=== PATIENT | male | born 1965 ===

== ENCOUNTER 2021-04-23 00:34 | Observation (INO) | payer BC ==
[2021-04-23] MEDS ORDERED: Lactated Ringers 1,000 ML IV ONE (01:04)
--- NOTE | 2021-04-23 01:12 | EDM.PDOC ---
ED HPI GENERAL MEDICAL PROBLEM - General Chief Complaint: Gastrointestinal Problem Stated Complaint: throwing up blood dehydrated Time Seen by Provider: 04/23/21 01:06 - History of Present Illness INITIAL COMMENTS - FREE TEXT/NARRATIVE: 55-year-old male presents the emergency room with nausea vomiting dehydration. Patient has been vomiting black coffee-ground like emesis started yesterday today this turned into bright red blood he is passing black stool tarry soft per rectum. Apparently the patient drinks heavily on the weekends. Then the patient uses ibuprofen at least 2 times a day. Patient denies any other medical problems no heart problems breathing difficulties or shortness of breath. He is not prescribed any routine medications. - Related Data Allergies Allergy/AdvReac Type Severity Reaction Status Date / Time No Known Allergies Allergy Verified 04/23/21 00:55 Home Meds: Home Meds . [No Known Home Meds] 04/23/21 [History] Past Medical History - Past Health History Medical/Surgical History: Denies Medical/Surgical History Social & Family History - Tobacco Use Tobacco Use Status *Q: Current Every Day Tobacco User Years of Tobacco use: 40 Packs/Tins Daily: 0.5 - Caffeine Use Caffeine Use: Reports: Coffee, Soda - Alcohol Use Days Per Week of Alcohol Use: 3 Number of Drinks Per Day: 6 Total Drinks Per Week: 18 - Recreational Drug Use Recreational Drug Use: No ED ROS GENERAL - Review of Systems Review Of Systems: See Below Constitutional: Reports: No Symptoms HEENT: Reports: No Symptoms Respiratory: Reports: No Symptoms Cardiovascular: Reports: No Symptoms Endocrine: Reports: No Symptoms GI/Abdominal: Reports: Black Stool, Hematemesis, Nausea, Vomiting. Denies: Abdominal Pain, Anorexia, Constipation : Reports: No Symptoms Musculoskeletal: Reports: No Symptoms Skin: Reports: No Symptoms Neurological: Reports: No Symptoms Psychiatric: Reports: No Symptoms Hematologic/Lymphatic: Reports: No Symptoms Immunologic: Reports: No Symptoms ED EXAM, GENERAL - Physical Exam Exam: See Below Exam Limited By: No Limitations General Appearance: Alert, No Apparent Distress, Other (Pale yellow color) Eye Exam: Bilateral Eye: Normal Inspection Head: Atraumatic, Normocephalic Neck: Normal Inspection, Supple, Non-Tender, Full Range of Motion Respiratory/Chest: No Respiratory Distress, Lungs Clear, Normal Breath Sounds Cardiovascular: Normal Peripheral Pulses, Regular Rate, Rhythm, No Edema, Tachycardia (Tachycardia rate slightly over 100) GI/Abdominal: Normal Bowel Sounds, Soft, Non-Tender Rectal (Males) Exam: Heme + Stool (Black tarry stool) Back Exam: Normal Inspection. No: CVA Tenderness (L), CVA Tenderness (R) Extremities: Normal Inspection, Normal Range of Motion, Non-Tender Course - Vital Signs Last Recorded V/S: Last Vital Signs Temp 36.5 C 04/23/21 05:28 Pulse 100 04/23/21 06:25 Resp 17 04/23/21 06:25 BP 97/66 04/23/21 06:25 Pulse Ox 94 L 04/23/21 06:25 - Orders/Labs/Meds Orders: Active Orders 24 hr Category Date Time Status Hemoccult [Fecal Occult Blood Collection] [RC] Care 04/23/21 01:20 Active ASDIRECTED RED BLOOD CELLS LP [BBK] Stat Lab 04/23/21 00:45 Results TYPE AND SCREEN [BBK] Stat Lab 04/23/21 00:45 Results Lactated Ringers [Ringers, Lactated] 1,000 ml Med 04/23/21 02:00 Active IV ASDIRECTED Sodium Chloride 0.9% [Normal Saline] 1,000 ml Med 04/23/21 05:00 Active IV ASDIRECTED Transfuse Red Blood Cells [COMM] Stat Oth 04/23/21 01:26 Ordered Medication Orders Lactated Ringer's (Ringers, Lactated) 1,000 mls @ 125 mls/hr IV ASDIRECTED BILL Last Admin: 04/23/21 01:59 Dose: 125 mls/hr Documented by: [email or web address] Sodium Chloride (Normal Saline) 1,000 mls @ 150 mls/hr IV ASDIRECTED BILL Last Admin: 04/23/21 05:20 Dose: 150 mls/hr Documented by: KAUFPAI Pantoprazole Sodium (Pantoprazole 40 Mg Vial) 40 mg IV BID [facility] Labs: Laboratory Tests 04/23/21 04/23/21 04/23/21 Range/Units 00:45 00:45 00:45 WBC 25.20 H (4.23-9.07) K/mm3 RBC 2.61 L (4.63-6.08) M/mm3 Hgb 5.4 L* (13.7-17.5) gm/dl Hct 18.4 L (40.1-51.0) % MCV 70.5 L (79.0-92.2) fl MCH 20.7 L (25.7-32.2) pg MCHC 29.3 L (32.2-35.5) g/dl RDW Std Deviation 58.7 H (35.1-43.9) fL Plt Count 189 (163-337) K/mm3 Neut % (Auto) 56.9 (34.0-67.9) % Lymph % (Auto) 32.3 (21.8-53.1) % Thayer % (Auto) 9.4 (5.3-12.2) % Eos % (Auto) 0.6 L (0.8-7.0) Baso % (Auto) 0.3 (0.1-1.2) % Neut # (Auto) 14.35 H (1.78-5.38) K/mm3 Lymph # (Auto) 8.13 H (1.32-3.57) K/mm3 Thayer # (Auto) 2.37 H (0.30-0.82) K/mm3 Eos # (Auto) 0.15 (0.04-0.54) K/mm3 Baso # (Auto) 0.08 (0.01-0.08) K/mm3 Manual Slide Review Abnormal smear Sodium 142 (136-145) mEq/L Potassium 3.7 (3.5-5.1) mEq/L Chloride 106 (98-107) mEq/L Carbon Dioxide 21 (21-32) mEq/L Anion Gap 18.7 H (5-15) BUN 49 H (7-18) mg/dL Creatinine 1.2 (0.7-1.3) mg/dL Est Cr Clr Drug Dosing 70.13 mL/min Estimated GFR (MDRD) > 60 (>60) mL/min BUN/Creatinine Ratio 40.8 H (14-18) Glucose 204 H (70-99) mg/dL Calcium 8.1 L (8.5-10.1) mg/dL Total Bilirubin 0.6 (0.2-1.0) mg/dL AST 33 (15-37) U/L ALT 45 (16-63) U/L Alkaline Phosphatase 78 (46-116) U/L Total Protein 5.3 L (6.4-8.2) g/dl Albumin 2.6 L (3.4-5.0) g/dl Globulin 2.7 gm/dL Albumin/Globulin Ratio 1.0 (1-2) Lipase 46 L (73-393) U/L SARS-CoV-2 RNA (BRADLEY) (NEGATIVE) Blood Type A POSITIVE Gel Antibody Screen Negative Crossmatch See Detail 04/23/21 Range/Units 05:20 WBC (4.23-9.07) K/mm3 RBC (4.63-6.08) M/mm3 Hgb (13.7-17.5) gm/dl Hct (40.1-51.0) % MCV (79.0-92.2) fl MCH (25.7-32.2) pg MCHC (32.2-35.5) g/dl RDW Std Deviation (35.1-43.9) fL Plt Count (163-337) K/mm3 Neut % (Auto) (34.0-67.9) % Lymph % (Auto) (21.8-53.1) % Thayer % (Auto) (5.3-12.2) % Eos % (Auto) (0.8-7.0) Baso % (Auto) (0.1-1.2) % Neut # (Auto) (1.78-5.38) K/mm3 Lymph # (Auto) (1.32-3.57) K/mm3 Thayer # (Auto) (0.30-0.82) K/mm3 Eos # (Auto) (0.04-0.54) K/mm3 Baso # (Auto) (0.01-0.08) K/mm3 Manual Slide Review Sodium (136-145) mEq/L Potassium (3.5-5.1) mEq/L Chloride (98-107) mEq/L Carbon Dioxide (21-32) mEq/L Anion Gap (5-15) BUN (7-18) mg/dL Creatinine (0.7-1.3) mg/dL Est Cr Clr Drug Dosing mL/min Estimated GFR (MDRD) (>60) mL/min BUN/Creatinine Ratio (14-18) Glucose (70-99) mg/dL Calcium (8.5-10.1) mg/dL Total Bilirubin (0.2-1.0) mg/dL AST (15-37) U/L ALT (16-63) U/L Alkaline Phosphatase (46-116) U/L Total Protein (6.4-8.2) g/dl Albumin (3.4-5.0) g/dl Globulin gm/dL Albumin/Globulin Ratio (1-2) Lipase (73-393) U/L SARS-CoV-2 RNA (BRADLEY) Negative (NEGATIVE) Blood Type Gel Antibody Screen Crossmatch Meds: Medications Generic Name Dose Route Start Last Admin Trade Name Freq PRN Reason Stop Dose Admin Lactated Ringer's 1,000 mls @ 125 mls/hr 04/23/21 02:00 04/23/21 01:59 Ringers, Lactated IV 125 mls/hr ASDIRECTED BILL Administration Sodium Chloride 1,000 mls @ 150 mls/hr 04/23/21 05:00 04/23/21 05:20 Normal Saline IV 150 mls/hr ASDIRECTED BILL Administration Pantoprazole Sodium 40 mg 04/23/21 09:00 Pantoprazole 40 Mg Vial IV BID BILL Discontinued Medications Generic Name Dose Route Start Last Admin Trade Name Freq PRN Reason Stop Dose Admin Lactated Ringer's 1,000 mls @ 1,000 mls/hr 04/23/21 01:04 04/23/21 01:07 Ringers, Lactated IV 04/23/21 02:03 1,000 mls/hr .BOLUS ONE Administration Sodium Chloride 500 mls @ 150 mls/hr 04/23/21 01:37 04/23/21 02:32 Normal Saline IV 04/23/21 04:56 150 mls/hr ASDIRECTED ONE Administration Pantoprazole Sodium 40 mg/ 100 mls @ 200 mls/hr 04/23/21 09:00 Sodium Chloride IV BID BILL Pantoprazole Sodium 40 mg 04/23/21 01:13 04/23/21 01:20 Pantoprazole 40 Mg Vial IVPUSH 04/23/21 01:14 40 mg ONETIME ONE Administration - Re-Assessments/Exams Free Text/Narrative Re-Assessment/Exam: 04/23/21 01:[address] Jimenes he recommends transfusing 3 units packed RBCs with a hemoglobin of 5.4. If the patient has normal liver function studies he can probably be kept here. Dr. Jimenes will come in if the patient becomes unstable or does not respond to fluid and red cells and will see in the morning. 04/23/21 05:07 Patient is doing better after 1 unit of packed red cells. Chemistries reviewed he has no laboratory evidence of liver pathology. The patient's color is starting to improve. I will write admit and hold orders. Departure - Departure Time of Disposition: 04:15 Disposition: Refer to Observation Clinical Impression: Gastrointestinal bleeding, upper - Discharge Information Sepsis Event Note (ED) - Evaluation Sepsis Screening Result: No Definite Risk - Focused Exam Vital Signs: Vital Signs Temp Temp Pulse Resp BP BP Pulse Ox 04/23/21 05:28 36.5 C 19 104/61 95 04/23/21 05:15 36.2 C 99 20 95/64 04/23/21 02:53 36.3 C 20 100/64 94 L 04/23/21 02:45 36.3 C 18 92/57 L 95 04/23/21 02:30 36.3 C 16 90/62 99 04/23/21 00:45 35.2 C L 110 H 22 H 80/48 L 98 - My Orders Last 24 Hours: My Active Orders 04/23/21 00:45 RED BLOOD CELLS LP [BBK] Stat TYPE AND SCREEN [BBK] Stat 04/23/21 01:20 Hemoccult [Fecal Occult Blood Collection] [RC] ASDIRECTED 04/23/21 01:26 Transfuse Red Blood Cells [COMM] Stat 04/23/21 02:00 Lactated Ringers [Ringers, Lactated] 1,000 ml IV ASDIRECTED 04/23/21 05:00 Sodium Chloride 0.9% [Normal Saline] 1,000 ml IV ASDIRECTED - Assessment/Plan Last 24 Hours: My Active Orders 04/23/21 00:45 RED BLOOD CELLS LP [BBK] Stat TYPE AND SCREEN [BBK] Stat 04/23/21 01:20 Hemoccult [Fecal Occult Blood Collection] [RC] ASDIRECTED 04/23/21 01:26 Transfuse Red Blood Cells [COMM] Stat 04/23/21 02:00 Lactated Ringers [Ringers, Lactated] 1,000 ml IV ASDIRECTED 04/23/21 05:00 Sodium Chloride 0.9% [Normal Saline] 1,000 ml IV ASDIRECTED
[2021-04-23] MEDS ORDERED: Pantoprazole 40 MG Vial IVPUSH ONE (01:13)
[2021-04-23] MEDS ORDERED: Sodium Chloride 0.9% 500 ML IV ONE (01:37)
[2021-04-23] MEDS ORDERED: Lactated Ringers 1,000 ML IV SCH (02:00)
[2021-04-23] MEDS ORDERED: Sodium Chloride 0.9% 1,000 ML IV SCH (05:00)
--- NOTE | 2021-04-23 07:17 | PCM.HP.2 ---
H&P History of Present Illness - General Date of Service: 04/23/21 Admit Problem/Dx: Admission Diagnosis/Problem Admission Diagnosis/Problem GI bleed not requiring more than 4 units of blood in 24 hours, ICU, or surgery Source of Information: Patient History Limitations: Reports: No Limitations - History of Present Illness Initial Comments - Free Text/Narative: Mr. Gonzalez is a 55 yo man who presented to the emergency room last night with hematemesis and acute blood loss anemia. His symptoms started about 36 hours ago, with nausea. He vomited outside in the dark, and then again in the morning, which was when he noted bloody emesis. He then looked at his vomit from the night before which looked black. He had a black bowel movement yesterday. This has never happened to him before. He has no history of peptic ulcer disease. He denies chronic medical problems but does not see doctors. He has been taking ibuprofen regularly for the past several weeks for arthritic pain. He drinks a reported 18 drinks per week and has been smoking 1/2 ppd cigarettes for decades. Surgical history includes knee surgery and bilateral inguinal hernia repair. He denies any family history of cancer. In the ER, he was hypotensive with BP around 90/40 with HR in the 110s. Hgb was just over 5 g/dL. Resuscitation was started with crystalloid and pRBC, and IV protonix was started. He is feeling better this morning with improvement in vitals and no further episodes of hematemesis. - Related Data Allergies/Adverse Reactions: Allergies Allergy/AdvReac Type Severity Reaction Status Date / Time No Known Allergies Allergy Verified 04/23/21 00:55 Home Medications: Home Meds . [No Known Home Meds] 04/23/21 [History] Past Medical History - Past Health History Medical/Surgical History: Denies Medical/Surgical History Social & Family History - Tobacco Use Tobacco Use Status *Q: Current Every Day Tobacco User Years of Tobacco use: 40 Packs/Tins Daily: 0.5 - Caffeine Use Caffeine Use: Reports: Coffee, Soda - Alcohol Use Days Per Week of Alcohol Use: 3 Number of Drinks Per Day: 6 Total Drinks Per Week: 18 - Recreational Drug Use Recreational Drug Use: No H&P Review of Systems - Review of Systems: Review Of Systems: See Below General: Reports: Malaise, Weakness, Fatigue HEENT: Reports: No Symptoms Pulmonary: Reports: No Symptoms Cardiovascular: Reports: No Symptoms Gastrointestinal: Reports: Hematemesis, Nausea, Vomiting Genitourinary: Reports: No Symptoms Musculoskeletal: Reports: No Symptoms Skin: Reports: Jaundice Psychiatric: Reports: No Symptoms Neurological: Reports: No Symptoms Hematologic/Lymphatic: Reports: Anemia Exam - Exam Exam: See Below - Vital Signs Vital Signs: Last Vital Signs Temp 36.5 C 04/23/21 05:28 Pulse 100 04/23/21 06:25 Resp 17 04/23/21 06:25 BP 97/66 04/23/21 06:25 Pulse Ox 94 L 04/23/21 06:25 Weight: 86.183 kg - Exam General: Alert, Oriented, Cooperative HEENT: Conjunctiva Clear, Other (missing several teeth) Neck: Supple Lungs: Clear to Auscultation, Normal Respiratory Effort Cardiovascular: Regular Rate, Regular Rhythm, Other (palpable radial pulses) GI/Abdominal Exam: Soft, Non-Tender, No Distention Rectal (Males) Exam: Deferred Extremities: Normal Inspection Skin: Warm, Dry, Other (basurto complexion, no obvious pallor) Psychiatric: Normal Mood - Patient Data Lab Results Last 24 hrs: Laboratory Results - last 24 hr 04/23/21 04/23/21 04/23/21 Range/Units 00:45 00:45 00:45 WBC 25.20 H (4.23-9.07) K/mm3 RBC 2.61 L (4.63-6.08) M/mm3 Hgb 5.4 L* (13.7-17.5) gm/dl Hct 18.4 L (40.1-51.0) % MCV 70.5 L (79.0-92.2) fl MCH 20.7 L (25.7-32.2) pg MCHC 29.3 L (32.2-35.5) g/dl RDW Std Deviation 58.7 H (35.1-43.9) fL Plt Count 189 (163-337) K/mm3 Neut % (Auto) 56.9 (34.0-67.9) % Lymph % (Auto) 32.3 (21.8-53.1) % Sac % (Auto) 9.4 (5.3-12.2) % Eos % (Auto) 0.6 L (0.8-7.0) Baso % (Auto) 0.3 (0.1-1.2) % Neut # (Auto) 14.35 H (1.78-5.38) K/mm3 Lymph # (Auto) 8.13 H (1.32-3.57) K/mm3 Sac # (Auto) 2.37 H (0.30-0.82) K/mm3 Eos # (Auto) 0.15 (0.04-0.54) K/mm3 Baso # (Auto) 0.08 (0.01-0.08) K/mm3 Manual Slide Review Abnormal smear Sodium 142 (136-145) mEq/L Potassium 3.7 (3.5-5.1) mEq/L Chloride 106 (98-107) mEq/L Carbon Dioxide 21 (21-32) mEq/L Anion Gap 18.7 H (5-15) BUN 49 H (7-18) mg/dL Creatinine 1.2 (0.7-1.3) mg/dL Est Cr Clr Drug Dosing 70.13 mL/min Estimated GFR (MDRD) > 60 (>60) mL/min BUN/Creatinine Ratio 40.8 H (14-18) Glucose 204 H (70-99) mg/dL Calcium 8.1 L (8.5-10.1) mg/dL Total Bilirubin 0.6 (0.2-1.0) mg/dL AST 33 (15-37) U/L ALT 45 (16-63) U/L Alkaline Phosphatase 78 (46-116) U/L Total Protein 5.3 L (6.4-8.2) g/dl Albumin 2.6 L (3.4-5.0) g/dl Globulin 2.7 gm/dL Albumin/Globulin Ratio 1.0 (1-2) Lipase 46 L (73-393) U/L SARS-CoV-2 RNA (BRADLEY) (NEGATIVE) Blood Type A POSITIVE Gel Antibody Screen Negative Crossmatch See Detail 04/23/21 Range/Units 05:20 WBC (4.23-9.07) K/mm3 RBC (4.63-6.08) M/mm3 Hgb (13.7-17.5) gm/dl Hct (40.1-51.0) % MCV (79.0-92.2) fl MCH (25.7-32.2) pg MCHC (32.2-35.5) g/dl RDW Std Deviation (35.1-43.9) fL Plt Count (163-337) K/mm3 Neut % (Auto) (34.0-67.9) % Lymph % (Auto) (21.8-53.1) % Sac % (Auto) (5.3-12.2) % Eos % (Auto) (0.8-7.0) Baso % (Auto) (0.1-1.2) % Neut # (Auto) (1.78-5.38) K/mm3 Lymph # (Auto) (1.32-3.57) K/mm3 Sac # (Auto) (0.30-0.82) K/mm3 Eos # (Auto) (0.04-0.54) K/mm3 Baso # (Auto) (0.01-0.08) K/mm3 Manual Slide Review Sodium (136-145) mEq/L Potassium (3.5-5.1) mEq/L Chloride (98-107) mEq/L Carbon Dioxide (21-32) mEq/L Anion Gap (5-15) BUN (7-18) mg/dL Creatinine (0.7-1.3) mg/dL Est Cr Clr Drug Dosing mL/min Estimated GFR (MDRD) (>60) mL/min BUN/Creatinine Ratio (14-18) Glucose (70-99) mg/dL Calcium (8.5-10.1) mg/dL Total Bilirubin (0.2-1.0) mg/dL AST (15-37) U/L ALT (16-63) U/L Alkaline Phosphatase (46-116) U/L Total Protein (6.4-8.2) g/dl Albumin (3.4-5.0) g/dl Globulin gm/dL Albumin/Globulin Ratio (1-2) Lipase (73-393) U/L SARS-CoV-2 RNA (BRADLEY) Negative (NEGATIVE) Blood Type Gel Antibody Screen Crossmatch Result Diagrams: 04/23/21 00:45 04/23/21 00:45 Sepsis Event Note - Evaluation Sepsis Screening Result: No Definite Risk - Focused Exam Vital Signs: Vital Signs Temp Temp Pulse Resp BP BP Pulse Ox 04/23/21 06:25 100 17 97/66 94 L 06/12/21 05:28 36.5 C 19 104/61 95 04/23/21 05:15 36.2 C 99 20 95/64 04/23/21 02:53 36.3 C 20 100/64 94 L 04/23/21 02:45 36.3 C 18 92/57 L 95 04/23/21 02:30 36.3 C 16 90/62 99 04/23/21 00:45 35.2 C L 110 H 22 H 80/48 L 98 Problem List Initiated/Reviewed/Updated: Yes Orders Last 24hrs: Active Orders 24 hr Category Date Time Status Patient Status [ADT] Routine ADT 04/23/21 06:21 Active Hemoccult [Fecal Occult Blood Collection] [RC] Care 04/23/21 01:20 Active ASDIRECTED NPO Now [Nothing per Oral Now Diet] [DIET] Diet 04/23/21 Lunch Ordered BASIC METABOLIC PANEL,BMP [CHEM] Stat Lab 04/23/21 06:42 Ordered CBC WITH AUTO DIFF [HEME] Stat Lab 04/23/21 06:42 Ordered RED BLOOD CELLS LP [BBK] Stat Lab 04/23/21 00:45 Results TYPE AND SCREEN [BBK] Stat Lab 04/23/21 00:45 Results Lactated Ringers [Ringers, Lactated] 1,000 ml Med 04/23/21 02:00 Active IV ASDIRECTED Pantoprazole [ProTONIX IV] Med 04/23/21 09:00 Active 40 mg IV BID Sodium Chloride 0.9% [Normal Saline] 1,000 ml Med 04/23/21 05:00 Active IV ASDIRECTED Schedule Procedure [COMM] Routine Oth 04/23/21 07:08 Ordered Transfuse Red Blood Cells [COMM] Stat Oth 04/23/21 01:26 Ordered Medication Orders Lactated Ringer's (Ringers, Lactated) 1,000 mls @ 125 mls/hr IV ASDIRECTED BILL Last Admin: 04/23/21 01:59 Dose: 125 mls/hr Documented by: MARGARITO Sodium Chloride (Normal Saline) 1,000 mls @ 150 mls/hr IV ASDIRECTED BILL Last Admin: 04/23/21 05:20 Dose: 150 mls/hr Documented by: MARGARITO Pantoprazole Sodium (Pantoprazole 40 Mg Vial) 40 mg IV BID BILL Assessment/Plan Comment:: Most likely bleeding type V gastric ulcer related to NSAID use, improved with initial resuscitative efforts. He is currently receiving the second of 3 units of pRBC ordered. Plan to check CBC, BMP after transfusion is completed later this morning. Keep NPO, plan for diagnostic EGD around noon. Continue IV protonix BID. - Mortality Measure Prognosis:: Good
[2021-04-23] MEDS ORDERED: Pantoprazole 40 MG in Sodium Chloride 0.9% 100 ML IV SCH (09:00)
[2021-04-23] MEDS: Pantoprazole 40 MG Vial IV SCH ×2 (09:01→20:26)
[2021-04-23] MEDS ORDERED: Albuterol 0.083% 2.5 MG/3 ML Neb Soln NEB ONE (11:15)
--- NOTE | 2021-04-23 11:41 | PCM.PRNOTE ---
- Free Text/Narrative Note: Date: 04/23/2021 Procedure: diagnostic esophagogastroduodenoscopy Indication: hematemesis with significant blood loss anemia with history of regular NSAID use Endoscopist: Carlos Manuel Jimenes MD Findings: Apparent type III hiatal hernia with associated inflammatory changes at the esophagogastric junction. No significant blood was encountered on endoscopy. The duodenum appeared normal. The gastric mucosa appeared normal with no evidence of ulceration. The distal esophagus appeared abnormal and inflamed. There did not appear to be evidence of Georgette-Johnson tear or esophageal varices. Biopsies were obtained. Detailed Report: The patient was taken to the endoscopy suite and placed in left lateral decubitus position. Timeout was performed and monitored anesthesia care was initiated. A bite-block was placed. The endoscope was inserted into the mouth and advanced to the stomach with ease. The duodenum was intubated and the distal duodenum was reached with the endoscope with ease. There was linares yellow bile within the small bowel with no evidence of prior hemorrhage or visible ulceration. A sample biopsy of duodenal mucosa was obtained from the bulb. The scope was withdrawn into the distal stomach. The pylorus and antrum appeared normal. A very careful, thorough search of the entire stomach was done with the endoscope and no evidence of ulceration was found. There was no old blood or evidence of ongoing hemorrhage within the stomach. On retroflexion, and impression of the fundus appeared consistent with a type II component of hiatal hernia, and there appeared to be a sliding component as well. There appeared to be some mild chronic inflammatory change of the cardia of the stomach. A biopsy was obtained from the gastric antrum and from the cardia. The scope was withdrawn into the herniated stomach and then distal esophagus. Although the Z-line was clear, the distal esophagus appeared abnormal with signs of chronic inflammation and edema. There was no evidence of mucosal trauma to suggest a Georgette-Johnson tear or findings of esophageal varices. A sample biopsy of the distal esophagus was obtained. The remainder of the esophagus appeared normal. Air was suctioned from the stomach prior to withdrawal of the scope. The patient tolerated the procedure well.
[2021-04-23] MEDS ORDERED: Propofol 200 MG/20 ML SDV ONE (11:50)
[2021-04-23] MEDS ORDERED: Lidocaine 1% 4 ML ONE (11:50)
[2021-04-23] MEDS ORDERED: fentaNYL 100 MCG/2 ML SDV ONE (11:50)
[2021-04-23] MEDS ORDERED: Lactated Ringers 1,000 ML ONE (11:50)
[2021-04-23] MEDS ORDERED: Lidocaine 4% Top Soln 50 ML Bottle ONE (11:51)
--- NOTE | 2021-04-23 12:48 | PCM.PREANE ---
Preanesthetic Assessment - Procedure Proposed Procedure: Diagnostic EGD Significant Anemia - Anesthesia/Transfusion/Family Hx Anesthesia History: Prior Anesthesia Without Reaction Family History of Anesthesia Reaction: No Transfusion History: Prior Transfusion Without Reaction (3 units transfusion of PRBC) Intubation History: Unknown - Review of Systems General: No Symptoms Pulmonary: Cough (Chronic Smoker 1/2 -1 ppd, occasional phlem production, raspy voice. ) Cardiovascular: No Symptoms Gastrointestinal: No Symptoms Neurological: No Symptoms Other: Reports: None (Anemia HGB 5.4 on admission, status post 3 units PRBC transfusion HGB at 8 currently. ) - Physical Assessment NPO Status Date: 04/22/21 NPO Status Time: 22:00 Vital Signs: Last Vital Signs Temp 36.9 C 04/23/21 11:16 Pulse 86 04/23/21 11:16 Resp 18 04/23/21 11:16 BP 111/67 04/23/21 11:16 Pulse Ox 99 04/23/21 11:21 Height: 1.78 m Weight: 81.692 kg ASA Class: 3 Mental Status: Alert & Oriented x3 Airway Class: Mallampati = 2 Dentition: Reports: Dentures, Missing Tooth/Teeth (4 teeth left on the bottom. ) Thyro-Mental Finger Breadths: 2 Mouth Opening Finger Breadths: 3 ROM/Head Extension: Full Lungs: Clear to Auscultation, Normal Respiratory Effort Cardiovascular: Regular Rate, Regular Rhythm - Lab Values: Laboratory Last Values WBC 13.61 K/mm3 (4.23-9.07) H 04/23/21 10:11 RBC 3.18 M/mm3 (4.63-6.08) L 04/23/21 10:11 Hgb 8.0 gm/dl (13.7-17.5) L D 04/23/21 10:11 Hct 24.7 % (40.1-51.0) L 04/23/21 10:11 MCV 77.7 fl (79.0-92.2) L D 04/23/21 10:11 MCH 25.2 pg (25.7-32.2) L 04/23/21 10:11 MCHC 32.4 g/dl (32.2-35.5) 04/23/21 10:11 RDW Std Deviation 60.8 fL (35.1-43.9) H 04/23/21 10:11 Plt Count 82 K/mm3 (163-337) L D 04/23/21 10:11 Neut % (Auto) 65.6 % (34.0-67.9) 04/23/21 10:11 Lymph % (Auto) 23.4 % (21.8-53.1) 04/23/21 10:11 [place] % (Auto) 10.2 % (5.3-12.2) 04/23/21 10:11 Eos % (Auto) 0.4 (0.8-7.0) L 04/23/21 10:11 Baso % (Auto) 0.1 % (0.1-1.2) 04/23/21 10:11 Neut # (Auto) 8.92 K/mm3 (1.78-5.38) H 04/23/21 10:11 Lymph # (Auto) 3.18 K/mm3 (1.32-3.57) 04/23/21 10:11 [place] # (Auto) 1.39 K/mm3 (0.30-0.82) H 04/23/21 10:11 Eos # (Auto) 0.06 K/mm3 (0.04-0.54) 04/23/21 10:11 Baso # (Auto) 0.02 K/mm3 (0.01-0.08) 04/23/21 10:11 Manual Slide Review Abnormal smear 04/23/21 10:11 Sodium 144 mEq/L (136-145) 04/23/21 10:11 Potassium 4.2 mEq/L (3.5-5.1) 04/23/21 10:11 Chloride 109 mEq/L (98-107) H 04/23/21 10:11 Carbon Dioxide 24 mEq/L (21-32) 04/23/21 10:11 Anion Gap 15.2 (5-15) H 04/23/21 10:11 BUN 46 mg/dL (7-18) H 04/23/21 10:11 Creatinine 0.8 mg/dL (0.7-1.3) 04/23/21 10:11 Est Cr Clr Drug Dosing 105.19 mL/min 04/23/21 10:11 Estimated GFR (MDRD) > 60 mL/min (>60) 04/23/21 10:11 BUN/Creatinine Ratio 57.5 (14-18) H 04/23/21 10:11 Glucose 129 mg/dL (70-99) H 04/23/21 10:11 Calcium 7.4 mg/dL (8.5-10.1) L 04/23/21 10:11 Total Bilirubin 0.6 mg/dL (0.2-1.0) 04/23/21 00:45 AST 33 U/L (15-37) 04/23/21 00:45 ALT 45 U/L (16-63) 04/23/21 00:45 Alkaline Phosphatase 78 U/L (46-116) 04/23/21 00:45 Total Protein 5.3 g/dl (6.4-8.2) L 04/23/21 00:45 Albumin 2.6 g/dl (3.4-5.0) L 04/23/21 00:45 Globulin 2.7 gm/dL 04/23/21 00:45 Albumin/Globulin Ratio 1.0 (1-2) 04/23/21 00:45 Lipase 46 U/L (73-393) L 04/23/21 00:45 SARS-CoV-2 RNA ([facility]) Negative (NEGATIVE) 04/23/21 05:20 Blood Type A POSITIVE 04/23/21 00:45 Gel Antibody Screen Negative 04/23/21 00:45 Crossmatch See Detail 04/23/21 00:45 - Imaging/EKG Impressions: Done. On Chart. SR - Allergies Allergies/Adverse Reactions: Allergies Allergy/AdvReac Type Severity Reaction Status Date / Time No Known Allergies Allergy Verified 04/23/21 00:55 - Anesthesia Plan Pre-Op Medication Ordered: Other (Albuterol nebulizer treatment. ) - Acknowledgements Anesthesia Type Planned: MAC Pt an Appropriate Candidate for the Planned Anesthesia: Yes Alternatives and Risks of Anesthesia Discussed w Pt/Guardian: Yes Pt/Guardian Understands and Agrees with Anesthesia Plan: Yes Additional Comments: Denies past medical history. Does not see a primary care doctor for preventative care. PreAnesthesia Questionnaire - Past Health History Medical/Surgical History: Denies Medical/Surgical History Musculoskeletal History: Reports: Arthritis - Past Surgical History Head Surgeries/Procedures: Reports: None Other HEENT Surgeries/Procedures: wears glasses, and upper dentures Other GI Surgeries/Procedures: hernia surgery- pt states about [address] mesh [address]. - SUBSTANCE USE Tobacco Use Status *Q: Current Every Day Tobacco User Days Per Week of Alcohol Use: 3 Number of Drinks Per Day: 6 Total Drinks Per Week: 18 Recreational Drug Use History: No - HOME MEDS Home Medications: Home Meds . [No Known Home Meds] 04/23/21 [History] - CURRENT (IN HOUSE) MEDS Current Meds: Current Medications Albuterol (Albuterol 0.083% 2.5 Mg/3 Ml Neb Soln) 2.5 mg NEB ONETIME ONE Stop: 04/23/21 11:16 Last Admin: 04/23/21 11:16 Dose: 2.5 mg Documented by: Lactated Ringer's (Ringers, Lactated) 1,000 mls @ 125 mls/hr IV ASDIRECTED [facility] Last Admin: 04/23/21 01:59 Dose: 125 mls/hr Documented by: Sodium Chloride (Normal Saline) 1,000 mls @ 150 mls/hr IV ASDIRECTED [facility] Last Admin: 04/23/21 05:20 Dose: 150 mls/hr Documented by: Pantoprazole Sodium (Pantoprazole 40 Mg Vial) 40 mg IV BID [facility] Last Admin: 04/23/21 09:01 Dose: 40 mg Documented by: Discontinued Medications Fentanyl (Fentanyl 100 Mcg/2 Ml Sdv) Confirm Administered Dose 100 mcg .ROUTE .STK-MED ONE Stop: 04/23/21 11:51 Lactated Ringer's (Ringers, Lactated) 1,000 mls @ 1,000 mls/hr IV .BOLUS ONE Stop: 04/23/21 02:03 Last Admin: 04/23/21 01:07 Dose: 1,000 mls/hr Documented by: Sodium Chloride (Normal Saline) 500 mls @ 150 mls/hr IV ASDIRECTED ONE Stop: 04/23/21 04:56 Last Admin: 04/23/21 02:32 Dose: 150 mls/hr Documented by: Pantoprazole Sodium 40 mg/ (Sodium Chloride) 100 mls @ 200 mls/hr IV BID BILL Lactated Ringer's (Ringers, Lactated) Confirm Administered Dose 1,000 mls @ as directed .ROUTE .STK-MED ONE Stop: 04/23/21 11:51 Lidocaine HCl (Xylocaine-Mpf 1%) Confirm Administered Dose 4 mls @ as directed .ROUTE .STK-MED ONE Stop: 04/23/21 11:51 Lidocaine HCl (Lidocaine 4% Top Soln 50 Ml Bottle) Confirm Administered Dose 50 ml .ROUTE .STK-MED ONE Stop: 04/23/21 11:52 Pantoprazole Sodium (Pantoprazole 40 Mg Vial) 40 mg IVPUSH ONETIME ONE Stop: 04/23/21 01:14 Last Admin: 04/23/21 01:20 Dose: 40 mg Documented by: Propofol (Propofol 200 Mg/20 Ml Sdv) Confirm Administered Dose 400 mg .ROUTE .STK-MED ONE Stop: 04/23/21 11:51
--- NOTE | 2021-04-23 12:49 | PCM48HPAN ---
Post Anesthesia Note - EVALUATION WITHIN 48HRS OF ANESTHETIC Vital Signs in Normal Range: Yes Patient Participated in Evaluation: Yes Respiratory Function Stable: Yes Airway Patent: Yes Cardiovascular Function Stable: Yes Hydration Status Stable: Yes Pain Control Satisfactory: Yes Nausea and Vomiting Control Satisfactory: Yes Mental Status Recovered: Yes Vital Signs: Last Vital Signs Temp 36.9 C 04/23/21 11:16 Pulse 86 04/23/21 11:16 Resp 18 04/23/21 11:16 BP 111/67 04/23/21 11:16 Pulse Ox 99 04/23/21 11:21
[2021-04-23] MEDS: Lactated Ringers 1,000 ML IV SCH (14:36)
--- NOTE | 2021-04-23 14:44 | CT ---
Chest CT Technique: Multiple axial sections were obtained from above the lung apices inferiorly through the lung bases. Intravenous contrast was utilized. Reconstructed coronal and sagittal images were obtained. Comparison: No prior chest imaging is available. Findings: Thoracic aorta shows mild atherosclerotic calcification. No aneurysm is seen. No mediastinal adenopathy is identified. Hilar regions appear within normal limits. No axillary adenopathy is seen. No pericardial thickening is appreciated. There are no intraluminal defects being seen within the visualized trachea and bronchi. Very slight scarring is noted within the right lung base. Lungs otherwise are clear. No acute parenchymal change is appreciated. No pleural effusions are seen. Bone window settings were reviewed. Mild scattered degenerative change is noted within the spine. Minimal old right upper rib fracture is seen which appears healed. Impression: 1. Incidental findings. 2. Nothing acute is seen on CT study of the chest. Diagnostic code #2 CT abdomen and pelvis Technique: Multiple axial sections were obtained from above the dome of the diaphragm inferiorly through the pubic symphysis. Intravenous contrast was utilized. Small amount of oral contrast is noted. Reconstructed coronal and sagittal images were obtained. Comparison: Prior CT abdomen study of 01/20/11. Findings: Liver shows a mildly nodular surface appearance. This finding is suspicious for cirrhosis. Gallbladder shows no calcified gallstones. There is questionable wall thickening seen around the gallbladder. Spleen size is slightly enlarged with length of 13.9 cm. Adrenal glands show no nodule. Pancreas shows no discrete abnormality. Kidneys show symmetric contrast enhancement with no hydronephrosis or mass. Abdominal aorta shows atherosclerotic calcification which continues into the iliac vessels. No aneurysm seen. No retroperitoneal adenopathy or mesenteric abnormalities are seen. Appendix is seen which is normal in size. No pelvic mass or adenopathy is seen. Bone window settings were reviewed which show slight degenerative change scattered within the lumbar spine. Impression: 1. Liver has a nodular surface characteristic suspicious for cirrhosis. This is an interval change from prior CT study. 2. Spleen is minimally prominent at 13.9 cm. This finding is fairly stable from prior exam and most likely is incidental. 3. Inflammatory change appears to be present around the gallbladder. Ultrasound could be obtained to confirm if clinically needed. 4. Other findings as noted above which are nonacute. Diagnostic code #3
[2021-04-24] MEDS: Lactated Ringers 1,000 ML IV SCH (04:04)
--- NOTE | 2021-04-24 07:20 | PCM.SN.2 ---
- Free Text/Narrative Note: S: no issues overnight. Tolerating full liquid diet. Had some diarrhea, not nearly as black as before. No bleeding noted. O: AF-VSS Transfused 3 u pRBC early yesterday with Hgb 5.4-->8.0g/dL by noon yesterday Hgb 6.5 g/dL this morning Platelet count 69,000 from 80,000 yesterday WBC now normal. LFTs were within normal range on admission. EGD did not identify any ulcer, varices, or other explanation for apparent upper GI bleed CT from yesterday shows findings suggestive of cirrhosis and cholecystitis. Patient has no clinical signs or symptoms of cholecystitis. Awake and alert, no distress Breathing comfortably RRR, palpable radial pulses Skin seems warm and well perfused Abd soft, no distention or tenderness, liver edge is palpable A: Patient presents with hematemesis, melena, and anemia. Findings are significant for appearance of cirrhosis with cholecystitis on CT and thrombocytopenia and anemia, with Hgb down to 6.5 from 8 g/dL this morning. Clinically he appears well, with no complaints and tolerating a diet. P: -transfuse 1 u pRBC -consult hospitalist for assessment and recommendations regarding new findings of cirrhosis -recheck CBC this afternoon -continue current therapy- IVF @ 75cc/hr, full liquid diet, PPI, avoid NSAIDs -SCD for DVT ppx
[2021-04-24] MEDS ORDERED: Sodium Chloride 0.9% 250 ML IV SCH (07:45)
[2021-04-24] MEDS: Pantoprazole 40 MG Vial IV SCH (08:44)
--- NOTE | 2021-04-24 15:52 | PCM.CONS ---
H&P History of Present Illness - General Date of Service: 04/24/21 Admit Problem/Dx: Admission Diagnosis/Problem Admission Diagnosis/Problem GI bleed not requiring more than 4 units of blood in 24 hours, ICU, or surgery - History of Present Illness Other HPI/Comments: Consultation on Mr. Link Gonzalez for liver cirrhosis. Requesting physician: Dr. Jimenes HPI Mr. Gonzalez is a 55 y/o male with a long history of heavy alcohol consumption who was admitted to the hospital yesterday for an upper GI bleed. Patient presented with nausea, vomiting, hematemesis and acute blood loss anemia. He was transfused with 3 units of PRBCs yesterday which temporarily improved his hemoglobin from 5.4 g/dl to 8 g/dl. This morning however, his Hg was down again to 6.5 g/dl which prompted giving him another unit of PRBCs. His platelet count is also noted be be low at 65K. An EGD done today showed no evidence of any active bleeding. CT scan of the abdomen showed evidence of cirrhosis which prompted consulting the medical team team. The patient admits to using NSAIDs; Aleve, bupropion and naproxen regularly. Also drinks about 1812 ounce bottles of haq beer 3 out of 7 days each week. He has done so for the past 20 to 30 years. He had a history of peptic ulcers but never had any significant bleeding like he did today. He otherwise denies having any fevers, chills malaise or any other constitutional symptoms . - Related Data Allergies/Adverse Reactions: Allergies Allergy/AdvReac Type Severity Reaction Status Date / Time No Known Allergies Allergy Verified 04/23/21 00:55 Home Medications: Home Meds . [No Known Home Meds] 04/23/21 [History] Past Medical History - Past Health History Medical/Surgical History: Denies Medical/Surgical History Musculoskeletal History: Reports: Arthritis - Past Surgical History Head Surgeries/Procedures: Reports: None Other HEENT Surgeries/Procedures: wears glasses, and upper dentures Other GI Surgeries/Procedures: hernia surgery- pt states about [address] mesh [address]. Social & Family History - Family History Family Medical History: No Pertinent Family History - Tobacco Use Tobacco Use Status *Q: Current Every Day Tobacco User Years of Tobacco use: 40 Packs/Tins Daily: 0.5 - Caffeine Use Caffeine Use: Reports: Coffee, Soda - Alcohol Use Days Per Week of Alcohol Use: 3 Number of Drinks Per Day: 6 Total Drinks Per Week: 18 - Recreational Drug Use Recreational Drug Use: No H&P Review of Systems - Review of Systems: Review Of Systems: Comprehensive ROS is negative, except as noted in HPI. Exam - Exam Exam: See Below - Vital Signs Vital Signs: Last Vital Signs Temp 97.9 F 04/24/21 11:16 Pulse 83 04/24/21 11:16 Resp 18 04/24/21 11:16 BP 91/59 L 04/24/21 11:16 Pulse Ox 99 04/24/21 11:16 Weight: 183 lb - Exam Physical Exam Comments:: General this is a thin middle-aged male who is awake and alert in no acute distress. CVS: S1-S2 appreciated, regular rate and rhythm, no murmurs, rubs or gallops Lungs: Clear without rales wheezes Abdomen: Soft, nontender, bowel sounds are present Extremities: No clubbing cyanosis or edema neuro: Strength equal and symmetrical bilaterally. Sensations intact. Patient has no tremors in the hands. Gait not examined - Patient Data Lab Results Last 24 hrs: Laboratory Results - last 24 hr 04/23/21 04/23/21 04/24/21 Range/Units 00:45 02:00 06:00 WBC (4.23-9.07) K/mm3 RBC (4.63-6.08) M/mm3 Hgb (13.7-17.5) gm/dl Hct (40.1-51.0) % MCV (79.0-92.2) fl MCH (25.7-32.2) pg MCHC (32.2-35.5) g/dl RDW Std Deviation (35.1-43.9) fL Plt Count (163-337) K/mm3 Neut % (Auto) (34.0-67.9) % Lymph % (Auto) (21.8-53.1) % [place] % (Auto) (5.3-12.2) % Eos % (Auto) (0.8-7.0) Baso % (Auto) (0.1-1.2) % Neut # (Auto) (1.78-5.38) K/mm3 Lymph # (Auto) (1.32-3.57) K/mm3 [place] # (Auto) (0.30-0.82) K/mm3 Eos # (Auto) (0.04-0.54) K/mm3 Baso # (Auto) (0.01-0.08) K/mm3 Manual Slide Review PT 12.2 H (9.7-12.0) SECONDS INR 1.14 APTT 23.3 (21.7-31.4) SECONDS Ammonia (11-32) umol/L Blood Type A POSITIVE Gel Antibody Screen Negative Crossmatch See Detail See Detail 04/24/21 04/24/21 Range/Units 06:00 06:00 WBC 7.06 (4.23-9.07) K/mm3 RBC 2.61 L (4.63-6.08) M/mm3 Hgb 6.5 L* D (13.7-17.5) gm/dl Hct 20.7 L (40.1-51.0) % MCV 79.3 (79.0-92.2) fl MCH 24.9 L (25.7-32.2) pg MCHC 31.4 L (32.2-35.5) g/dl RDW Std Deviation 61.6 H (35.1-43.9) fL Plt Count 69 L (163-337) K/mm3 Neut % (Auto) 65.7 (34.0-67.9) % Lymph % (Auto) 21.8 (21.8-53.1) % [place] % (Auto) 10.8 (5.3-12.2) % Eos % (Auto) 1.3 (0.8-7.0) Baso % (Auto) 0.3 (0.1-1.2) % Neut # (Auto) 4.64 (1.78-5.38) K/mm3 Lymph # (Auto) 1.54 (1.32-3.57) K/mm3 [place] # (Auto) 0.76 (0.30-0.82) K/mm3 Eos # (Auto) 0.09 (0.04-0.54) K/mm3 Baso # (Auto) 0.02 (0.01-0.08) K/mm3 Manual Slide Review Abnormal smear PT (9.7-12.0) SECONDS INR APTT (21.7-31.4) SECONDS Ammonia 15 (11-32) umol/L Blood Type Gel Antibody Screen Crossmatch Result Diagrams: 04/24/21 06:00 04/23/21 10:11 Sepsis Event Note - Evaluation Sepsis Screening Result: No Definite Risk - Focused Exam Vital Signs: Vital Signs Temp Pulse Pulse Resp BP BP Pulse Ox 04/24/21 11:16 97.9 F 83 18 91/59 L 99 04/24/21 11:14 97.9 F 83 18 91/59 L 99 04/24/21 09:21 97.9 F 84 84 18 103/62 103/62 100 04/24/21 09:06 97.9 F 88 18 97/57 L 04/24/21 09:05 97.9 F 88 18 97/57 L 99 04/24/21 03:54 98.1 F 83 13 98/60 97 Consult PN Assessment/Plan (1) Cirrhosis of liver SNOMED Code(s): 17488055 Code(s): K74.60 - UNSPECIFIED CIRRHOSIS OF LIVER Current Visit: Yes Qualifiers: Hepatic cirrhosis type: alcoholic cirrhosis Assessment:: Patient has liver cirrhosis prior secondary to chronic alcoholism Other etiologies include viral hepatitis such as hepatitis B or C. I will order a viral hepatitis panel. (2) Gastrointestinal bleeding, upper SNOMED Code(s): 48399758 Code(s): K92.2 - GASTROINTESTINAL HEMORRHAGE, UNSPECIFIED Current Visit: Yes Assessment:: Patient is on PPI twice daily He is also received 4 units of PRBCs He will have a repeat H&H this afternoon (3) Acute blood loss anemia SNOMED Code(s): 654496925 Code(s): D62 - ACUTE POSTHEMORRHAGIC ANEMIA Current Visit: Yes (4) Thrombocytopenia SNOMED Code(s): 042780426 Code(s): D69.6 - THROMBOCYTOPENIA, UNSPECIFIED Current Visit: Yes Assessment:: Thrombocytopenia in his case is likely secondary to the underlying alcoholic liver disease and cirrhosis Avoid heparin or heparin products. Follow platelet counts daily. (5) Full code status SNOMED Code(s): 043861261 Code(s): Z78.9 - OTHER SPECIFIED HEALTH STATUS Current Visit: Yes (6) DVT prophylaxis SNOMED Code(s): 118933107, 646905670 Code(s): Z29.9 - ENCOUNTER FOR PROPHYLACTIC MEASURES, UNSPECIFIED Current Visit: Yes Assessment:: scd's Problem List Initiated/Reviewed/Updated: Yes Plan: Thank you for this consultation The hospitalist team will continue to follow along
--- NOTE | 2021-04-24 17:57 | PCM.DCSUM1 ---
Discharge Summary - Hospital Course Free Text/Narrative:: Mr. Gonzalez was admitted two days ago with hematemesis and symptomatic anemia. He was transfused 3 u pRBC on admission and Hgb went from 5.4 g/dL to 8.0. He was kept NPO and started on IV protonix. He was taken for diagnostic esophagogastroduodenoscopy which showed a hiatal hernia but no evidence of ulcer, varices, or other source of hemorrhage. No blood was seen on endoscopy. Subsequently, a CT scan of the chest, abdomen and pelvis was ordered which timur wed evidence of cirrhosis with an edematous gallbladder. The patient had a few episodes of melena which cleared during his admission. He was able to tolerate a full liquid diet without issues. He had no abdominal pain or nausea while he was admitted. On subsequent labs, his Hgb went down again to 6.5 the day after his endoscopy. He was transfused 1 u pRBC in the morning and in the afternoon his Hgb was again 8. His WBC normalized from an initial high of 25 to 5-7 while admitted without antibiotics. His platelets were noted to be low, in the 60-80k range. He was given a choice to go home the evening of hospital day 2 or wait till morning for one more CBC check, which was what was recommended. He opted to go home and will follow up in clinic in the morning for re-evaluation, repeat labs and set up to establish care with a primary care doctor. Diagnosis: Stroke: No - Discharge Data Discharge Date: 04/24/21 Discharge Disposition: Home, Self-Care 01 Condition: Good - Referral to Home Health Primary Care Physician: PCP None - Patient Summary/Data Operative Procedure(s) Performed: esophagogastroduodenoscopy with biopsy - Patient Instructions Diet: Usual Diet as Tolerated Activity: As Tolerated - Discharge Plan *PRESCRIPTION DRUG MONITORING PROGRAM REVIEWED*: Not Applicable *COPY OF PRESCRIPTION DRUG MONITORING REPORT IN PATIENT SAMIR: Not Applicable Home Medications: Home Meds . [No Known Home Meds] 04/23/21 [History] Oxygen Therapy Mode: Room Air Forms: ED Department Discharge Referrals: PCP,None [Primary Care Provider] - - Discharge Summary/Plan Comment DC Time >30 min.: No Discharge Summary/Plan Comment: Follow up in clinic tomorrow with repeat lab work. - Patient Data Vitals - Most Recent: Last Vital Signs Temp 36.6 C 04/24/21 16:26 Pulse 81 04/24/21 16:26 Resp 18 04/24/21 16:26 BP 101/57 L 04/24/21 16:26 Pulse Ox 96 04/24/21 16:26 Weight - Most Recent: 83.007 kg I&O - Last 24 hours: Intake & Output 04/24/21 04/24/21 04/24/21 06:59 14:59 22:59 Intake Total 0818 771 2590 Output Total 750 900 Balance 500 200 392 Lab Results - Last 24 hrs: Laboratory Results - last 24 hr 04/23/21 04/23/21 04/24/21 Range/Units 00:45 02:00 06:00 WBC (4.23-9.07) K/mm3 RBC (4.63-6.08) M/mm3 Hgb (13.7-17.5) gm/dl Hct (40.1-51.0) % MCV (79.0-92.2) fl MCH (25.7-32.2) pg MCHC (32.2-35.5) g/dl RDW Std Deviation (35.1-43.9) fL Plt Count (163-337) K/mm3 Neut % (Auto) (34.0-67.9) % Lymph % (Auto) (21.8-53.1) % [place] % (Auto) (5.3-12.2) % Eos % (Auto) (0.8-7.0) Baso % (Auto) (0.1-1.2) % Neut # (Auto) (1.78-5.38) K/mm3 Lymph # (Auto) (1.32-3.57) K/mm3 [place] # (Auto) (0.30-0.82) K/mm3 Eos # (Auto) (0.04-0.54) K/mm3 Baso # (Auto) (0.01-0.08) K/mm3 Manual Slide Review PT 12.2 H (9.7-12.0) SECONDS INR 1.14 APTT 23.3 (21.7-31.4) SECONDS Ammonia (11-32) umol/L Blood Type A POSITIVE Gel Antibody Screen Negative Crossmatch See Detail See Detail 04/24/21 04/24/21 04/24/21 Range/Units 06:00 06:00 16:07 WBC 7.06 5.97 (4.23-9.07) K/mm3 RBC 2.61 L 3.15 L (4.63-6.08) M/mm3 Hgb 6.5 L* D 8.0 L D (13.7-17.5) gm/dl Hct 20.7 L 25.3 L (40.1-51.0) % MCV 79.3 80.3 (79.0-92.2) fl MCH 24.9 L 25.4 L (25.7-32.2) pg MCHC 31.4 L 31.6 L (32.2-35.5) g/dl RDW Std Deviation 61.6 H 63.5 H (35.1-43.9) fL Plt Count 69 L 64 L (163-337) K/mm3 Neut % (Auto) 65.7 57.1 (34.0-67.9) % Lymph % (Auto) 21.8 28.8 (21.8-53.1) % [place] % (Auto) 10.8 12.1 (5.3-12.2) % Eos % (Auto) 1.3 1.5 (0.8-7.0) Baso % (Auto) 0.3 0.3 (0.1-1.2) % Neut # (Auto) 4.64 3.41 (1.78-5.38) K/mm3 Lymph # (Auto) 1.54 1.72 (1.32-3.57) K/mm3 [place] # (Auto) 0.76 0.72 (0.30-0.82) K/mm3 Eos # (Auto) 0.09 0.09 (0.04-0.54) K/mm3 Baso # (Auto) 0.02 0.02 (0.01-0.08) K/mm3 Manual Slide Review Abnormal smear Abnormal smear PT (9.7-12.0) SECONDS INR APTT (21.7-31.4) SECONDS Ammonia 15 (11-32) umol/L Blood Type Gel Antibody Screen Crossmatch Med Orders - Current: Current Medications Lactated Ringer's (Ringers, Lactated) 1,000 mls @ 75 mls/hr IV ASDIRECTED BILL Last Admin: 04/24/21 04:04 Dose: 75 mls/hr Documented by: Pantoprazole Sodium (Pantoprazole 40 Mg Vial) 40 mg IV BID [facility] Last Admin: 04/24/21 08:44 Dose: 40 mg Documented by: Discontinued Medications Albuterol (Albuterol 0.083% 2.5 Mg/3 Ml Neb Soln) 2.5 mg NEB ONETIME ONE Stop: 04/23/21 11:16 Last Admin: 04/23/21 11:16 Dose: 2.5 mg Documented by: Fentanyl (Fentanyl 100 Mcg/2 Ml Sdv) Confirm Administered Dose 100 mcg .ROUTE .STK-MED ONE Stop: 04/23/21 11:51 Lactated Ringer's (Ringers, Lactated) 1,000 mls @ 1,000 mls/hr IV .BOLUS ONE Stop: 04/23/21 02:03 Last Admin: 04/23/21 01:07 Dose: 1,000 mls/hr Documented by: Sodium Chloride (Normal Saline) 500 mls @ 150 mls/hr IV ASDIRECTED ONE Stop: 04/23/21 04:56 Last Admin: 04/23/21 02:32 Dose: 150 mls/hr Documented by: Lactated Ringer's (Ringers, Lactated) 1,000 mls @ 125 mls/hr IV ASDIRECTED [facility] Last Admin: 04/23/21 01:59 Dose: 125 mls/hr Documented by: Sodium Chloride (Normal Saline) 1,000 mls @ 150 mls/hr IV ASDIRECTED [facility] Last Admin: 04/23/21 05:20 Dose: 150 mls/hr Documented by: Pantoprazole Sodium 40 mg/ (Sodium Chloride) 100 mls @ 200 mls/hr IV BID [facility] Lactated Ringer's (Ringers, Lactated) Confirm Administered Dose 1,000 mls @ as directed .ROUTE .STK-MED ONE Stop: 04/23/21 11:51 Lidocaine HCl (Xylocaine-Mpf 1%) Confirm Administered Dose 4 mls @ as directed .ROUTE .STK-MED ONE Stop: 04/23/21 11:51 Sodium Chloride (Normal Saline) 250 mls @ 150 mls/hr IV ASDIRECTED [facility] Last Admin: 04/24/21 08:50 Dose: 150 mls/hr Documented by: Lidocaine HCl (Lidocaine 4% Top Soln 50 Ml Bottle) Confirm Administered Dose 50 ml .ROUTE .STK-MED ONE Stop: 04/23/21 11:52 Pantoprazole Sodium (Pantoprazole 40 Mg Vial) 40 mg IVPUSH ONETIME ONE Stop: 04/23/21 01:14 Last Admin: 04/23/21 01:20 Dose: 40 mg Documented by: Propofol (Propofol 200 Mg/20 Ml Sdv) Confirm Administered Dose 400 mg .ROUTE .STK-MED ONE Stop: 04/23/21 11:51
--- NOTE | 2021-04-27 16:12 | PCM.SN.2 ---
- Free Text/Narrative Note: EKG interpretation on 04/23/21 for Link Gonzalez Normal sinus rythm at a rate of 85 bpm Normal NH interval 155 mSec Normal QRS interval [address] changes or any acute ischemic changes noted. No previous EKG in the system for comparison.
== END 2021-04-24 18:21 | disposition home or self-care (01) ==
LOC: JD.ED 00:34 → JD.MS 06:21
PROVIDERS: ADMIT Surgery; ATTEND Surgery
DX: K22.70 Barrett's esophagus without dysplasia (principal); K31.89 Other diseases of stomach and duodenum; F17.210 Nicotine dependence, cigarettes, uncomplicated; D62 Acute posthemorrhagic anemia; D69.6 Thrombocytopenia, unspecified; K74.60 Unspecified cirrhosis of liver; Z01.812 Encounter for preprocedural laboratory examination; Z20.822 Contact with and (suspected) exposure to COVID-19
CPT/HCPCS: 36415; 36430; 43239; 71260; 74177; 80048; 80053; 80074; 82140; 83690; 85025; 85610; 85730; 86850; 86900; 86901; 86922; 87635; 93005; 94640; 96374; 96376; 99285; A9270; C9113; G0378; J2704; J3010; J7030; J7050; J7120; P9016; 00731; 93010; U0002

== ENCOUNTER 2021-09-20 12:00 | Emergency (ER) | payer BC ==
[2021-09-20] MEDS ORDERED: Sodium Chloride 0.9% 10 ML Syringe FLUSH PRN ×2 (12:26→12:56)
[2021-09-20] MEDS ORDERED: Pantoprazole 40 MG Vial IVPUSH ONE (12:43)
[2021-09-20] MEDS ORDERED: Sodium Chloride 0.9% 1,000 ML IV STA ×2 (12:43→16:20)
[2021-09-20] MEDS ORDERED: Ondansetron 4 MG/2 ML SDV IVPUSH ONE (12:43)
--- NOTE | 2021-09-20 12:49 | EDM.PDOC ---
<Jose Thomas - Last Filed: 09/21/21 19:19> ED HPI GENERAL MEDICAL PROBLEM - General Chief Complaint: Gastrointestinal Problem Stated Complaint: BLOOD IN VOMIT AND STOOL Time Seen by Provider: 09/20/21 12:23 - Related Data Allergies Allergy/AdvReac Type Severity Reaction Status Date / Time No Known Allergies Allergy Verified 04/23/21 00:55 Home Meds: Home Meds . [No Known Home Meds] 04/23/21 [History] Course - Re-Assessments/Exams Free Text/Narrative Re-Assessment/Exam: 09/21/21 02:58 The patient's post-transfusion H/H has increased to 7.6/24.2. 09/21/21 07:30 The patient had an uneventful night. No additional signs of bleeding, such as hematemesis, bloody, or black stools. He denies having abdominal pain. I will discharge him home. He states that he already has Prilosec at home that he can resume taking. He will need to follow-up with Dr. Jersey PADILLA to arrange for an outpatient EGD. He is to return to the ED if he redevelops any signs of bleeding. 09/21/21 19:19 Departure - Departure Time of Disposition: 07:31 Disposition: Home, Self-Care 01 Condition: Good Clinical Impression: Upper GI bleed, Anemia - Discharge Information *PRESCRIPTION DRUG MONITORING PROGRAM REVIEWED*: Not Applicable *COPY OF PRESCRIPTION DRUG MONITORING REPORT IN PATIENT SAMIR: Not Applicable Instructions: Gastrointestinal Bleeding, [id number] Referrals: Stevie Juarez MD [Primary Care Provider] - Forms: ED Department Discharge Additional Instructions: You were seen in the emergency room after throwing up blood and passing black stools. Work-up in the ER included numerous blood tests, 2 sets of blood cultures, a CT of your chest, abdomen and pelvis, followed by a CT of your abdomen and pelvis, and an ECG. You were transfused 2 units with packed red blood cells in the ER. We recommend that you restart taking your previously prescribed Prilosec. Please follow-up with your PCP, Dr. Stevie Putnam, at the next available appointment. He will need to arrange for you to undergo an outpatient EGD (scope of your stomach). Please return to the ER immediately if you redevelop any signs of bleeding, including vomiting blood, passing blood, or passing black stools. <Sanjana Orozco - Last Filed: 09/22/21 22:01> ED HPI GENERAL MEDICAL PROBLEM - General Source of Information: Reports: Patient, Family, RN Notes Reviewed History Limitations: Reports: No Limitations - History of Present Illness INITIAL COMMENTS - FREE TEXT/NARRATIVE: Patient is a 56-year-old male presenting to the emergency department with complaints of upper GI bleed. Patient reports that last evening he had 1 emesis which he describes as dark maroon in color. At that time it was a fairly small amount. This morning, he had a second, much larger, bloody emesis. Also reports that stool today was black in color. Does not have diarrhea. States stool is formed. Denies any abdominal pain. He does have a history of GI bleed in April which resulted in blood transfusion. EGD was completed that time and there was no cause for the bleeding identified. Patient is not currently on a PPI. Reports that he no longer consumes alcohol and does not use NSAIDs. Denies any abdominal pain. Denies feeling nauseous at this time. Patient re ports dizziness upon standing but denies any dizziness while at rest. Denies any significant shortness of breath. Past Medical History - Past Health History Medical/Surgical History: Denies Medical/Surgical History Musculoskeletal History: Reports: Arthritis Hematologic History: Reports: Blood Transfusion(s) - Past Surgical History Head Surgeries/Procedures: Reports: None Other HEENT Surgeries/Procedures: wears glasses, and upper dentures Other GI Surgeries/Procedures: hernia surgery- pt states about [address]. Social & Family History - Family History Family Medical History: No Pertinent Family History - Caffeine Use Caffeine Use: Reports: Coffee, Soda ED ROS GENERAL - Review of Systems Review Of Systems: Comprehensive ROS is negative, except as noted in HPI. ED EXAM, GI/ABD - Physical Exam Exam: See Below Exam Limited By: No Limitations General Appearance: Alert, WD/WN, No Apparent Distress Respiratory/Chest: No Respiratory Distress, Lungs Clear, Normal Breath Sounds, No Accessory Muscle Use, Chest Non-Tender Cardiovascular: Normal Peripheral Pulses, Regular Rate, Rhythm, No Edema, No Gallop, No JVD, No Murmur, No Rub GI/Abdominal Exam: Normal Bowel Sounds, Soft, Non-Tender, No Organomegaly, No Distention, No Abnormal Bruit, No Mass, Pelvis Stable Neurological: Alert, Oriented, CN II-XII Intact, Normal Cognition, Normal Gait, Normal Reflexes, No Motor/Sensory Deficits Psychiatric: Normal Affect, Normal Mood Skin Exam: Warm, Dry, Intact, No Rash, Pallor #1 Interpretation EKG Date: 09/20/21 Time: 13:59 Rhythm: NSR Rate (Beats/Min): 110 [place]: Normal P-Wave: Present QRS: Normal ST-T: Normal QT: Prolonged Course - Vital Signs Last Recorded V/S: Last Vital Signs Temp 97.2 F 09/21/21 00:00 Pulse 85 09/21/21 00:00 Resp 18 09/21/21 00:00 BP 105/75 09/21/21 00:00 Pulse Ox 97 09/21/21 00:00 - Orders/Labs/Meds Labs: Laboratory Tests 09/20/21 09/20/21 09/20/21 Range/Units 12:35 12:35 12:35 WBC 17.66 H (4.23-9.07) K/mm3 RBC 3.75 L (4.63-6.08) M/mm3 Hgb 7.7 L (13.7-17.5) gm/dl Hct 26.1 L (40.1-51.0) % MCV 69.6 L D (79.0-92.2) fl MCH 20.5 L (25.7-32.2) pg MCHC 29.5 L (32.2-35.5) g/dl RDW Std Deviation 57.3 H (35.1-43.9) fL Plt Count 192 D (163-337) K/mm3 Neut % (Auto) 77.0 H (34.0-67.9) % Lymph % (Auto) 13.7 L (21.8-53.1) % [place] % (Auto) 8.5 (5.3-12.2) % Eos % (Auto) 0.3 L (0.8-7.0) Baso % (Auto) 0.2 (0.1-1.2) % Neut # (Auto) 13.59 H (1.78-5.38) K/mm3 Lymph # (Auto) 2.42 (1.32-3.57) K/mm3 [place] # (Auto) 1.50 H (0.30-0.82) K/mm3 Eos # (Auto) 0.06 (0.04-0.54) K/mm3 Baso # (Auto) 0.04 (0.01-0.08) K/mm3 Manual Slide Review Abnormal smear PT (9.7-12.0) SECONDS INR APTT (21.7-31.4) SECONDS Sodium 143 (136-145) mEq/L Potassium 4.5 (3.5-5.1) mEq/L Chloride 110 H (98-107) mEq/L Carbon Dioxide 23 (21-32) mEq/L Anion Gap 14.5 (5-15) BUN 44 H D (7-18) mg/dL Creatinine 0.9 (0.7-1.3) mg/dL Est Cr Clr Drug Dosing TNP Estimated GFR (MDRD) > 60 (>60) mL/min BUN/Creatinine Ratio 48.9 H (14-18) Glucose 143 H (70-99) mg/dL Lactic Acid (0.4-2.0) mmol/L Calcium 8.0 L (8.5-10.1) mg/dL Total Bilirubin 0.4 (0.2-1.0) mg/dL AST 31 (15-37) U/L ALT 43 (16-63) U/L Alkaline Phosphatase 78 (46-116) U/L Troponin I < 0.017 (0.00-0.056) ng/mL Total Protein 6.1 L (6.4-8.2) g/dl Albumin 2.8 L (3.4-5.0) g/dl Globulin 3.3 gm/dL Albumin/Globulin Ratio 0.9 L (1-2) SARS-CoV-2 RNA ([facility]) (NEGATIVE) Blood Type A POSITIVE Gel Antibody Screen Negative Crossmatch See Detail 09/20/21 09/20/21 09/20/21 Range/Units 12:35 14:34 16:15 WBC (4.23-9.07) K/mm3 RBC (4.63-6.08) M/mm3 Hgb 6.6 L* (13.7-17.5) gm/dl Hct 21.9 L (40.1-51.0) % MCV (79.0-92.2) fl MCH (25.7-32.2) pg MCHC (32.2-35.5) g/dl RDW Std Deviation (35.1-43.9) fL Plt Count (163-337) K/mm3 Neut % (Auto) (34.0-67.9) % Lymph % (Auto) (21.8-53.1) % [place] % (Auto) (5.3-12.2) % Eos % (Auto) (0.8-7.0) Baso % (Auto) (0.1-1.2) % Neut # (Auto) (1.78-5.38) K/mm3 Lymph # (Auto) (1.32-3.57) K/mm3 [place] # (Auto) (0.30-0.82) K/mm3 Eos # (Auto) (0.04-0.54) K/mm3 Baso # (Auto) (0.01-0.08) K/mm3 Manual Slide Review PT 11.5 (9.7-12.0) SECONDS INR 1.04 APTT 21.5 L (21.7-31.4) SECONDS Sodium (136-145) mEq/L Potassium (3.5-5.1) mEq/L Chloride (98-107) mEq/L Carbon Dioxide (21-32) mEq/L Anion Gap (5-15) BUN (7-18) mg/dL Creatinine (0.7-1.3) mg/dL Est Cr Clr Drug Dosing Estimated GFR (MDRD) (>60) mL/min BUN/Creatinine Ratio (14-18) Glucose (70-99) mg/dL Lactic Acid (0.4-2.0) mmol/L Calcium (8.5-10.1) mg/dL Total Bilirubin (0.2-1.0) mg/dL AST (15-37) U/L ALT (16-63) U/L Alkaline Phosphatase (46-116) U/L Troponin I (0.00-0.056) ng/mL Total Protein (6.4-8.2) g/dl Albumin (3.4-5.0) g/dl Globulin gm/dL Albumin/Globulin Ratio (1-2) SARS-CoV-2 RNA ([place]) Negative (NEGATIVE) Blood Type Gel Antibody Screen Crossmatch 09/20/21 09/21/21 Range/Units 16:15 00:45 WBC (4.23-9.07) K/mm3 RBC (4.63-6.08) M/mm3 Hgb 7.6 L (13.7-17.5) gm/dl Hct 24.2 L (40.1-51.0) % MCV (79.0-92.2) fl MCH (25.7-32.2) pg MCHC (32.2-35.5) g/dl RDW Std Deviation (35.1-43.9) fL Plt Count (163-337) K/mm3 Neut % (Auto) (34.0-67.9) % Lymph % (Auto) (21.8-53.1) % [place] % (Auto) (5.3-12.2) % Eos % (Auto) (0.8-7.0) Baso % (Auto) (0.1-1.2) % Neut # (Auto) (1.78-5.38) K/mm3 Lymph # (Auto) (1.32-3.57) K/mm3 [place] # (Auto) (0.30-0.82) K/mm3 Eos # (Auto) (0.04-0.54) K/mm3 Baso # (Auto) (0.01-0.08) K/mm3 Manual Slide Review PT (9.7-12.0) SECONDS INR APTT (21.7-31.4) SECONDS Sodium (136-145) mEq/L Potassium (3.5-5.1) mEq/L Chloride (98-107) mEq/L Carbon Dioxide (21-32) mEq/L Anion Gap (5-15) BUN (7-18) mg/dL Creatinine (0.7-1.3) mg/dL Est Cr Clr Drug Dosing Estimated GFR (MDRD) (>60) mL/min BUN/Creatinine Ratio (14-18) Glucose (70-99) mg/dL Lactic Acid 1.1 (0.4-2.0) mmol/L Calcium (8.5-10.1) mg/dL Total Bilirubin (0.2-1.0) mg/dL AST (15-37) U/L ALT (16-63) U/L Alkaline Phosphatase (46-116) U/L Troponin I (0.00-0.056) ng/mL Total Protein (6.4-8.2) g/dl Albumin (3.4-5.0) g/dl Globulin gm/dL Albumin/Globulin Ratio (1-2) SARS-CoV-2 RNA ([facility]) (NEGATIVE) Blood Type Gel Antibody Screen Crossmatch Meds: Medications Discontinued Medications Generic Name Dose Route Start Last Admin Trade Name Freq PRN Reason Stop Dose Admin Diatrizoate Meglum/Diatrizoate Sod 120 ml 09/20/21 12:56 09/20/21 14:14 Diatrizoate Meglumine/Diatrizoate Sodium 37% 120 Ml Bottle PO 09/20/21 12:57 30 ml ONETIME ONE Administration Sodium Chloride 1,000 mls @ 999 mls/hr 09/20/21 12:43 09/20/21 13:40 Normal Saline IV 09/20/21 13:43 999 mls/hr NOW STA Administration Sodium Chloride 1,000 mls @ 100 mls/hr 09/20/21 16:20 09/20/21 17:18 Normal Saline IV 09/21/21 02:19 100 mls/hr NOW STA Administration Piperacillin Sod/Tazobactam 100 mls @ 200 mls/hr 09/20/21 16:20 09/20/21 17:18 Sod 4.5 gm/ Sodium Chloride IV 09/20/21 16:49 200 mls/hr ONETIME ONE Administration Iopamidol 50 ml 09/20/21 12:56 09/20/21 14:14 Iopamidol 612 Mg/Ml 50 Ml Sdv IVPUSH 09/20/21 12:57 50 ml ONETIME ONE Administration Iopamidol 100 ml 09/20/21 12:56 09/20/21 14:14 Iopamidol 612 Mg/Ml 100 Ml Bottle IVPUSH 09/20/21 12:57 100 ml ONETIME ONE Administration Ondansetron HCl 4 mg 09/20/21 12:43 09/20/21 13:39 Ondansetron 4 Mg/2 Ml Sdv IVPUSH 09/20/21 12:44 4 mg ONETIME ONE Administration Pantoprazole Sodium 80 mg 09/20/21 12:43 09/20/21 13:39 Pantoprazole 40 Mg Vial IVPUSH 09/20/21 12:44 80 mg BOLUS ONE Administration Pantoprazole Sodium 40 mg 09/21/21 01:30 09/21/21 01:58 Pantoprazole 40 Mg Vial IVPUSH 09/21/21 01:31 40 mg ONETIME ONE Administration Sodium Chloride 10 ml 09/20/21 12:26 09/20/21 13:41 Sodium Chloride 0.9% 10 Ml Syringe FLUSH 10 ml ASDIRECTED PRN Administration Keep Vein Open Sodium Chloride 10 ml 09/20/21 12:56 09/20/21 14:14 Sodium Chloride 0.9% 10 Ml Syringe FLUSH 10 ml ONETIME PRN Administration IV FLUSH - Re-Assessments/Exams Free Text/Narrative Re-Assessment/Exam: Patient is a 56-year-old male presenting to the emergency department with complaints of onset of upper GI bleed last evening. He has had 2 episodes of bloody emesis since then with this morning's being much larger than yesterday's. Also reports black stool. He does have a history of GI bleed in April resulting in hospitalization with blood transfusion. EGD done at that time showed no source of bleed. He is not currently on a PPI. States that he has stopped drinking alcohol and no longer uses NSAIDs. Exam is unremarkable with the exception of him being slightly pallorous. I have ordered blood work, EKG, CT scan of the chest abdomen pelvis. I will give 1 L bolus of normal saline, Zofran 4 mg IV, and 80 mg of IV Protonix. 09/20/21 14:05 Hematology significant for WBC elevated at 17.66, hemoglobin 7.7. Platelets normal at 192. BUN elevated 44 and normal creatinine of 0.9. Is consistent with an upper GI bleed. Hematology otherwise unremarkable. I suspect hemoglobin will continue to drop likely requiring transfusion. Have ordered repeat H&H to be done at 1600. Patient has had no further vomiting thus far. CT results are pending. 09/20/21 16:01 CT scan of the chest shows nothing acute. CT scan of the abdomen pelvis impression as follows: 1. Evidence of cirrhosis. 2. Increasing spleen size from prior study which currently measures 14.5 cm 3. Small bladder diverticulum which is stable. 4. Other chronic findings as noted above. 5. Small bowel intussusception within the left abdomen which is a length of 4.1 cm. This is an interval change from prior CT study. Case was discussed with general surgeon on-call, Dr. Desir. She verbalized that this patient will require exploratory laparotomy with possible bowel resection which would result in an extended hospital stay. Unfortunately have no hospital beds available in our facility. I have called both facilities in [place] and they also have no available beds. We will contact [facility] to see if they would be able to accept patient. Patient continues to be pain- free. He has had no further emesis since arrival. Since patient will likely require surgery, I will order 2 units of packed RBCs to be transfused. Given the results of the CT scan and his elevation in white blood cells, I have ordered lactic acid and blood cultures. Once blood cultures are drawn, patient will receive a dose of Zosyn. 09/20/21 18:27 We have been unable to locate in inpatient bed for this patient thus far. Case was discussed with the general surgeon, Dr. Desir again. She did come in and assess the patient and he had a negative adbominal exam. He has no abdominal tenderness. She suspects this was a transient intussusception. She request that we repeat CT scan of the abdomen pelvis without IV contrast to see if intussusception resolved. 09/20/21 20:[address] of the abdomen pelvis without contrast shows that the previous intussusception is no longer seen.. There is mild residual small bowel wall thickening is seen within the left upper abdomen. Patient is resting comfortably. He has no abdominal pain. He has had no bloody emesis since his presentation to ER. States he did have a formed bowel movement that was still black in color, however this would be to be expected. We will transfuse her 2 units of blood and then plan to recheck an H&H 2 hours after this. If he needs an additional unit this will be given. If he is stable with no further bleeding, patient be started on Protonix and will follow up with GI specialist as an outpatient. 09/20/21 22:[address] Thomas. He will assume care and disposition of patient due to end of shift. Sepsis Event Note (ED) - Evaluation Sepsis Screening Result: No Definite Risk
[2021-09-20] MEDS ORDERED: Iopamidol 612 MG/ML 50 ML SDV IVPUSH ONE (12:56)
[2021-09-20] MEDS ORDERED: Diatrizoate Meglumine/Diatrizoate Sodium 37% 120 ML Bottle PO ONE (12:56)
[2021-09-20] MEDS ORDERED: Iopamidol 612 MG/ML 100 ML Bottle IVPUSH ONE (12:56)
--- NOTE | 2021-09-20 14:47 | CT ---
CT chest Technique: Multiple axial sections through the chest were obtained. Intravenous contrast was utilized. Reconstructed coronal and sagittal images were obtained. Comparison: Prior CT chest study of 04/23/21. Findings: Thoracic aorta shows no aneurysm. Mediastinum and hilar regions show no adenopathy. No axillary adenopathy is appreciated. No pericardial thickening is seen. No thickening is seen around the esophagus. Lungs are clear with no acute parenchymal change. Bone window settings were reviewed which show mild disc space narrowing and endplate spurring within the spine. Old right upper rib fracture is seen which appears to be healed. No acute osseous finding is seen. Impression: 1. Nothing acute is seen on CT study of the chest. 2. Other findings believed to be chronic as noted above. Diagnostic code #2 CT abdomen and pelvis Technique: Multiple axial sections were obtained from above the dome of the diaphragm inferiorly through the pubic symphysis. Intravenous and oral contrast were utilized. Delayed images were also obtained to the bladder. Reconstructed coronal and sagittal images were obtained. Comparison: Prior CT abdomen and pelvis exam of 04/23/21. Findings: Nodular appearance of the liver is seen compatible with stable cirrhotic change. Spleen is enlarged with length of 14.5 cm which has increased from prior CT exam. Spleen pushes the kidney more anteriorly than on prior study. Adrenal glands show no nodule. Both kidneys show symmetric contrast enhancement with no hydronephrosis or mass. Pancreas shows no discrete abnormality. Gallbladder contains no calcified gallstones. Abdominal aorta shows atherosclerotic calcification which continues into the iliac vessels with no aneurysm. No retroperitoneal adenopathy is seen. No pelvic mass or adenopathy is appreciated. There is a fat containing partial right inguinal hernia noted. Small bowel intussusception within the left abdomen is seen. This intussusception measures about 4.1 cm in size. No additional bowel abnormality is appreciated. Contrast is noted throughout the small bowel. Delayed images show contrast within the ureters and bladder. Small bladder diverticulum is seen off the left side measuring 2.1 cm which is stable from prior exam. Appendix is seen and is normal in size. Bone window settings were reviewed. Slight degenerative change is scattered within the lumbar spine. Mild degenerative change is also noted within the sacroiliac joints. No acute osseous finding is seen. Impression: 1. Evidence of cirrhosis. 2. Increasing spleen size from prior study which currently measures 14.5 cm. 3. Small bladder diverticulum which is stable. 4. Other chronic findings as noted above. 5. Small bowel intussusception within the left abdomen which has a length of 4.1 cm. This is an interval change from prior CT study. Diagnostic code #3
[2021-09-20] MEDS ORDERED: Piperacillin/Tazobactam 4.5 GM in Sodium Chloride 0.9% 100 ML IV ONE (16:20)
--- NOTE | 2021-09-20 18:16 | PCM.PREANE ---
Preanesthetic Assessment - Procedure Proposed Procedure: Laparoscopy diagnostic - Anesthesia/Transfusion/Family Hx Anesthesia History: Prior Anesthesia Without Reaction Family History of Anesthesia Reaction: No Transfusion History: Prior Transfusion Without Reaction (3 units transfusion of PRBC) Intubation History: Unknown - Review of Systems General: Weakness, Fatigue, Malaise, Chills Pulmonary: No Symptoms Cardiovascular: No Symptoms Gastrointestinal: Nausea (prior to coming to hospital), Vomiting (priorto coming to hospital) Neurological: No Symptoms Other: Reports: Liver Problems (cirrosis diagnosed in April 2021) - Physical Assessment NPO Status Date: 09/19/21 NPO Status Time: 08:00 Vital Signs: Last Vital Signs Temp 36.8 C 09/20/21 17: Pulse 109 H 09/20/21 17: Resp 22 H 09/20/21 17: BP 103/67 09/20/21 17: Pulse Ox 97 09/20/21 17:21 Height: 1.78 m Weight: 81.647 kg ASA Class: 3 Mental Status: Alert & Oriented x3 Airway Class: Mallampati = 1 Dentition: Reports: Dentures, Broken Tooth/Teeth Thyro-Mental Finger Breadths: 3 Mouth Opening Finger Breadths: 3 ROM/Head Extension: Full Lungs: Normal Respiratory Effort, Decreased Breath Sounds (clear with cough) Cardiovascular: Regular Rate, Regular Rhythm - Lab Values: Laboratory Last Values WBC 17.66 K/mm3 (4.23-9.07) H 09/20/21 12:35 RBC 3.75 M/mm3 (4.63-6.08) L 09/20/21 12:35 Hgb 6.6 gm/dl (13.7-17.5) L* 09/20/21 16:15 Hct 21.9 % (40.1-51.0) L 09/20/21 16:15 MCV 69.6 fl (79.0-92.2) L D 09/20/21 12:35 MCH 20.5 pg (25.7-32.2) L 09/20/21 12:35 MCHC 29.5 g/dl (32.2-35.5) L 09/20/21 12:35 RDW Std Deviation 57.3 fL (35.1-43.9) H 09/20/21 12:35 Plt Count 192 K/mm3 (163-337) D 09/20/21 12:35 Neut % (Auto) 77.0 % (34.0-67.9) H 09/20/21 12:35 Lymph % (Auto) 13.7 % (21.8-53.1) L 09/20/21 12:35 [place] % (Auto) 8.5 % (5.3-12.2) 09/20/21 12:35 Eos % (Auto) 0.3 (0.8-7.0) L 09/20/21 12:35 Baso % (Auto) 0.2 % (0.1-1.2) 09/20/21 12:35 Neut # (Auto) 13.59 K/mm3 (1.78-5.38) H 09/20/21 12:35 Lymph # (Auto) 2.42 K/mm3 (1.32-3.57) 09/20/21 12:35 [place] # (Auto) 1.50 K/mm3 (0.30-0.82) H 09/20/21 12:35 Eos # (Auto) 0.06 K/mm3 (0.04-0.54) 09/20/21 12:35 Baso # (Auto) 0.04 K/mm3 (0.01-0.08) 09/20/21 12:35 Manual Slide Review Abnormal smear 09/20/21 12:35 PT 11.5 SECONDS (9.7-12.0) 09/20/21 12:35 INR 1.04 09/20/21 12:35 APTT 21.5 SECONDS (21.7-31.4) L 09/20/21 12:35 Sodium 143 mEq/L (136-145) 09/20/21 12:35 Potassium 4.5 mEq/L (3.5-5.1) 09/20/21 12:35 Chloride 110 mEq/L (98-107) H 09/20/21 12:35 Carbon Dioxide 23 mEq/L (21-32) 09/20/21 12:35 Anion Gap 14.5 (5-15) 09/20/21 12:35 BUN 44 mg/dL (7-18) H D 09/20/21 12:35 Creatinine 0.9 mg/dL (0.7-1.3) 09/20/21 12:35 Est Cr Clr Drug Dosing TNP 09/20/21 12:35 Estimated GFR (MDRD) > 60 mL/min (>60) 09/20/21 12:35 BUN/Creatinine Ratio 48.9 (14-18) H 09/20/21 12:35 Glucose 143 mg/dL (70-99) H 09/20/21 12:35 Lactic Acid 1.1 mmol/L (0.4-2.0) 09/20/21 16:15 Calcium 8.0 mg/dL (8.5-10.1) L 09/20/21 12:35 Total Bilirubin 0.4 mg/dL (0.2-1.0) 09/20/21 12:35 AST 31 U/L (15-37) 09/20/21 12:35 ALT 43 U/L (16-63) 09/20/21 12:35 Alkaline Phosphatase 78 U/L (46-116) 09/20/21 12:35 Troponin I < 0.017 ng/mL (0.00-0.056) 09/20/21 12:35 Total Protein 6.1 g/dl (6.4-8.2) L 09/20/21 12:35 Albumin 2.8 g/dl (3.4-5.0) L 09/20/21 12:35 Globulin 3.3 gm/dL 09/20/21 12:35 Albumin/Globulin Ratio 0.9 (1-2) L 09/20/21 12:35 SARS-CoV-2 RNA ([facility]) Negative (NEGATIVE) 09/20/21 14:34 Blood Type A POSITIVE 09/20/21 12:35 Gel Antibody Screen Negative 09/20/21 12:35 Crossmatch See Detail 09/20/21 12:35 - Allergies Allergies/Adverse Reactions: Allergies Allergy/AdvReac Type Severity Reaction Status Date / Time No Known Allergies Allergy Verified 04/23/21 00:55 - Blood Blood Available: Yes Product(s) Available: PRBC - Anesthesia Plan Pre-Op Medication Ordered: None - Acknowledgements Anesthesia Type Planned: General Anesthesia Pt an Appropriate Candidate for the Planned Anesthesia: Yes Alternatives and Risks of Anesthesia Discussed w Pt/Guardian: Yes Pt/Guardian Understands and Agrees with Anesthesia Plan: Yes PreAnesthesia Questionnaire - Past Health History Medical/Surgical History: Denies Medical/Surgical History Musculoskeletal History: Reports: Arthritis Hematologic History: Reports: Blood Transfusion(s) - Past Surgical History Head Surgeries/Procedures: Reports: None Other HEENT Surgeries/Procedures: wears glasses, and upper dentures Other GI Surgeries/Procedures: hernia surgery- pt states about [address]. - SUBSTANCE USE Tobacco Use Status *Q: Current Every Day Tobacco User Tobacco Use Within Last Twelve Months: Cigarettes Second Hand Smoke Exposure: No Days Per Week of Alcohol Use: 0 Number of Drinks Per Day: 0 Total Drinks Per Week: 0 Recreational Drug Use History: No - HOME MEDS Home Medications: Home Meds . [No Known Home Meds] 04/23/21 [History] - CURRENT (IN HOUSE) MEDS Current Meds: Current Medications Sodium Chloride (Normal Saline) 1,000 mls @ 100 mls/hr IV NOW STA Stop: 09/21/21 02:19 Last Admin: 09/20/21 17:18 Dose: 100 mls/hr Documented by: Sodium Chloride (Sodium Chloride 0.9% 10 Ml Syringe) 10 ml FLUSH ASDIRECTED PRN PRN Reason: Keep Vein Open Last Admin: 09/20/21 13:41 Dose: 10 ml Documented by: Sodium Chloride (Sodium Chloride 0.9% 10 Ml Syringe) 10 ml FLUSH ONETIME PRN PRN Reason: IV FLUSH Last Admin: 09/20/21 14:14 Dose: 10 ml Documented by: Discontinued Medications Diatrizoate Meglum/Diatrizoate Sod (Diatrizoate Meglumine/Diatrizoate Sodium 37% 120 Ml Bottle) 120 ml PO ONETIME ONE Stop: 09/20/21 12:57 Last Admin: 09/20/21 14:14 Dose: 30 ml Documented by: Sodium Chloride (Normal Saline) 1,000 mls @ 999 mls/hr IV NOW STA Stop: 09/20/21 13:43 Last Admin: 09/20/21 13:40 Dose: 999 mls/hr Documented by: Piperacillin Sod/Tazobactam (Sod 4.5 gm/ Sodium Chloride) 100 mls @ 200 mls/hr IV ONETIME ONE Stop: 09/20/21 16:49 Last Admin: 09/20/21 17:18 Dose: 200 mls/hr Documented by: Iopamidol (Iopamidol 612 Mg/Ml 50 Ml Sdv) 50 ml IVPUSH ONETIME ONE Stop: 09/20/21 12:57 Last Admin: 09/20/21 14:14 Dose: 50 ml Documented by: Iopamidol (Iopamidol 612 Mg/Ml 100 Ml Bottle) 100 ml IVPUSH ONETIME ONE Stop: 09/20/21 12:57 Last Admin: 09/20/21 14:14 Dose: 100 ml Documented by: Ondansetron HCl (Ondansetron 4 Mg/2 Ml Sdv) 4 mg IVPUSH ONETIME ONE Stop: 09/20/21 12:44 Last Admin: 09/20/21 13:39 Dose: 4 mg Documented by: Pantoprazole Sodium (Pantoprazole 40 Mg Vial) 80 mg IVPUSH BOLUS ONE Stop: 09/20/21 12:44 Last Admin: 09/20/21 13:39 Dose: 80 mg Documented by:
--- NOTE | 2021-09-20 18:35 | PCM.HP.2 ---
H&P History of Present Illness - General Date of Service: 09/20/21 Source of Information: Patient, Provider History Limitations: Reports: No Limitations - History of Present Illness Initial Comments - Free Text/Narative: The patient is a 56 y/o gentleman who presents with two episodes of hematemesis that started last night. This was followed by one episode of melena. He denies any abdominal pain. No dizziness or weakness. He does report smoking 1/2 pack per day and This is his second bleeding episode, the first occurred 5 months ago. He was hospitalized and EGD was completed with no significant findings. CT scan done in the ED with findings of intussusception. - Related Data Allergies/Adverse Reactions: Allergies Allergy/AdvReac Type Severity Reaction Status Date / Time No Known Allergies Allergy Verified 04/23/21 00:55 Home Medications: Home Meds . [No Known Home Meds] 04/23/21 [History] Past Medical History - Past Health History Medical/Surgical History: Denies Medical/Surgical History Musculoskeletal History: Reports: Arthritis Hematologic History: Reports: Blood Transfusion(s) - Past Surgical History Head Surgeries/Procedures: Reports: None Other HEENT Surgeries/Procedures: wears glasses, and upper dentures Other GI Surgeries/Procedures: hernia surgery- pt states about [address] mesh [address]. Social & Family History - Family History Family Medical History: No Pertinent Family History - Tobacco Use Tobacco Use Status *Q: Current Every Day Tobacco User Second Hand Smoke Exposure: No - Caffeine Use Caffeine Use: Reports: Coffee, Soda - Alcohol Use Days Per Week of Alcohol Use: 0 Number of Drinks Per Day: 0 Total Drinks Per Week: 0 - Recreational Drug Use Recreational Drug Use: No H&P Review of Systems - Review of Systems: Review Of Systems: See Below General: Reports: No Symptoms HEENT: Reports: No Symptoms Pulmonary: Reports: No Symptoms Cardiovascular: Reports: No Symptoms Gastrointestinal: Reports: Black Stool, Hematemesis Genitourinary: Reports: No Symptoms Musculoskeletal: Reports: No Symptoms Skin: Reports: No Symptoms Psychiatric: Reports: No Symptoms Neurological: Reports: No Symptoms Hematologic/Lymphatic: Reports: No Symptoms Exam - Exam Exam: See Below - Vital Signs Vital Signs: Last Vital Signs Temp 36.8 C 09/20/21 17:21 Pulse 109 H 09/20/21 17:21 Resp 22 H 09/20/21 17:21 BP 103/67 09/20/21 17:21 Pulse Ox 97 09/20/21 17:21 Weight: 81.647 kg - Exam Quality Assessment: No: Supplemental Oxygen General: Alert, Oriented HEENT: Conjunctiva Clear, EOMI Neck: Supple Lungs: Clear to Auscultation, Normal Respiratory Effort Cardiovascular: Regular Rhythm, Tachycardia GI/Abdominal Exam: Soft, Non-Tender, No Distention, Tender Extremities: No Pedal Edema Peripheral Pulses: 2+: Dorsalis Pedis (L), Dorsalis Pedis (R) Skin: Warm, Dry, Intact - Patient Data Lab Results Last 24 hrs: Laboratory Results - last 24 hr 09/20/21 09/20/21 09/20/21 Range/Units 12:35 12:35 12:35 WBC 17.66 H (4.23-9.07) K/mm3 RBC 3.75 L (4.63-6.08) M/mm3 Hgb 7.7 L (13.7-17.5) gm/dl Hct 26.1 L (40.1-51.0) % MCV 69.6 L D (79.0-92.2) fl MCH 20.5 L (25.7-32.2) pg MCHC 29.5 L (32.2-35.5) g/dl RDW Std Deviation 57.3 H (35.1-43.9) fL Plt Count 192 D (163-337) K/mm3 Neut % (Auto) 77.0 H (34.0-67.9) % Lymph % (Auto) 13.7 L (21.8-53.1) % [place] % (Auto) 8.5 (5.3-12.2) % Eos % (Auto) 0.3 L (0.8-7.0) Baso % (Auto) 0.2 (0.1-1.2) % Neut # (Auto) 13.59 H (1.78-5.38) K/mm3 Lymph # (Auto) 2.42 (1.32-3.57) K/mm3 [place] # (Auto) 1.50 H (0.30-0.82) K/mm3 Eos # (Auto) 0.06 (0.04-0.54) K/mm3 Baso # (Auto) 0.04 (0.01-0.08) K/mm3 Manual Slide Review Abnormal smear PT (9.7-12.0) SECONDS INR APTT (21.7-31.4) SECONDS Sodium 143 (136-145) mEq/L Potassium 4.5 (3.5-5.1) mEq/L Chloride 110 H (98-107) mEq/L Carbon Dioxide 23 (21-32) mEq/L Anion Gap 14.5 (5-15) BUN 44 H D (7-18) mg/dL Creatinine 0.9 (0.7-1.3) mg/dL Est Cr Clr Drug Dosing TNP Estimated GFR (MDRD) > 60 (>60) mL/min BUN/Creatinine Ratio 48.9 H (14-18) Glucose 143 H (70-99) mg/dL Lactic Acid (0.4-2.0) mmol/L Calcium 8.0 L (8.5-10.1) mg/dL Total Bilirubin 0.4 (0.2-1.0) mg/dL AST 31 (15-37) U/L ALT 43 (16-63) U/L Alkaline Phosphatase 78 (46-116) U/L Troponin I < 0.017 (0.00-0.056) ng/mL Total Protein 6.1 L (6.4-8.2) g/dl Albumin 2.8 L (3.4-5.0) g/dl Globulin 3.3 gm/dL Albumin/Globulin Ratio 0.9 L (1-2) SARS-CoV-2 RNA ([facility]) (NEGATIVE) Blood Type A POSITIVE Gel Antibody Screen Negative Crossmatch See Detail 09/20/21 09/20/21 09/20/21 Range/Units 12:35 14:34 16:15 WBC (4.23-9.07) K/mm3 RBC (4.63-6.08) M/mm3 Hgb 6.6 L* (13.7-17.5) gm/dl Hct 21.9 L (40.1-51.0) % MCV (79.0-92.2) fl MCH (25.7-32.2) pg MCHC (32.2-35.5) g/dl RDW Std Deviation (35.1-43.9) fL Plt Count (163-337) K/mm3 Neut % (Auto) (34.0-67.9) % Lymph % (Auto) (21.8-53.1) % [place] % (Auto) (5.3-12.2) % Eos % (Auto) (0.8-7.0) Baso % (Auto) (0.1-1.2) % Neut # (Auto) (1.78-5.38) K/mm3 Lymph # (Auto) (1.32-3.57) K/mm3 [place] # (Auto) (0.30-0.82) K/mm3 Eos # (Auto) (0.04-0.54) K/mm3 Baso # (Auto) (0.01-0.08) K/mm3 Manual Slide Review PT 11.5 (9.7-12.0) SECONDS INR 1.04 APTT 21.5 L (21.7-31.4) SECONDS Sodium (136-145) mEq/L Potassium (3.5-5.1) mEq/L Chloride (98-107) mEq/L Carbon Dioxide (21-32) mEq/L Anion Gap (5-15) BUN (7-18) mg/dL Creatinine (0.7-1.3) mg/dL Est Cr Clr Drug Dosing Estimated GFR (MDRD) (>60) mL/min BUN/Creatinine Ratio (14-18) Glucose (70-99) mg/dL Lactic Acid (0.4-2.0) mmol/L Calcium (8.5-10.1) mg/dL Total Bilirubin (0.2-1.0) mg/dL AST (15-37) U/L ALT (16-63) U/L Alkaline Phosphatase (46-116) U/L Troponin I (0.00-0.056) ng/mL Total Protein (6.4-8.2) g/dl Albumin (3.4-5.0) g/dl Globulin gm/dL Albumin/Globulin Ratio (1-2) SARS-CoV-2 RNA ([facility]) Negative (NEGATIVE) Blood Type Gel Antibody Screen Crossmatch 09/20/21 Range/Units 16:15 WBC (4.23-9.07) K/mm3 RBC (4.63-6.08) M/mm3 Hgb (13.7-17.5) gm/dl Hct (40.1-51.0) % MCV (79.0-92.2) fl MCH (25.7-32.2) pg MCHC (32.2-35.5) g/dl RDW Std Deviation (35.1-43.9) fL Plt Count (163-337) K/mm3 Neut % (Auto) (34.0-67.9) % Lymph % (Auto) (21.8-53.1) % [place] % (Auto) (5.3-12.2) % Eos % (Auto) (0.8-7.0) Baso % (Auto) (0.1-1.2) % Neut # (Auto) (1.78-5.38) K/mm3 Lymph # (Auto) (1.32-3.57) K/mm3 [place] # (Auto) (0.30-0.82) K/mm3 Eos # (Auto) (0.04-0.54) K/mm3 Baso # (Auto) (0.01-0.08) K/mm3 Manual Slide Review PT (9.7-12.0) SECONDS INR APTT (21.7-31.4) SECONDS Sodium (136-145) mEq/L Potassium (3.5-5.1) mEq/L Chloride (98-107) mEq/L Carbon Dioxide (21-32) mEq/L Anion Gap (5-15) BUN (7-18) mg/dL Creatinine (0.7-1.3) mg/dL Est Cr Clr Drug Dosing Estimated GFR (MDRD) (>60) mL/min BUN/Creatinine Ratio (14-18) Glucose (70-99) mg/dL Lactic Acid 1.1 (0.4-2.0) mmol/L Calcium (8.5-10.1) mg/dL Total Bilirubin (0.2-1.0) mg/dL AST (15-37) U/L ALT (16-63) U/L Alkaline Phosphatase (46-116) U/L Troponin I (0.00-0.056) ng/mL Total Protein (6.4-8.2) g/dl Albumin (3.4-5.0) g/dl Globulin gm/dL Albumin/Globulin Ratio (1-2) SARS-CoV-2 RNA ([facility]) (NEGATIVE) Blood Type Gel Antibody Screen Crossmatch Result Diagrams: 09/20/21 16:15 09/20/21 12:35 Sepsis Event Note - Evaluation Sepsis Screening Result: No Definite Risk - Focused Exam Vital Signs: Vital Signs Temp Temp Pulse Resp BP Pulse Ox 09/20/21 17:21 36.8 C 109 H 22 H 103/67 97 09/20/21 17:07 36.8 C 110 H 20 106/73 99 09/20/21 12:38 36.2 C 108 H 18 93/61 100 *Q Meaningful Use (ADM) - VTE *Q VTE Pharmacological Contraindications *Q: Active Hemorrhage - Problem List (1) Acute blood loss anemia SNOMED Code(s): 239281712 ICD Code: D62 - ACUTE POSTHEMORRHAGIC ANEMIA Status: Acute Current Visit: No (2) Gastrointestinal bleeding, upper SNOMED Code(s): 31440560 ICD Code: K92.2 - GASTROINTESTINAL HEMORRHAGE, UNSPECIFIED Status: Acute Current Visit: No Problem List Initiated/Reviewed/Updated: Yes Orders Last 24hrs: Active Orders 24 hr Category Date Time Status Peripheral IV Care [RC] . DIRECTED Care 09/20/21 12:26 Active Abdomen Pelvis wo Cont [CT] Stat Exams 09/20/21 18:21 Ordered BLOOD CULTURE [MREF] Stat Lab 09/20/21 16:15 Received BLOOD CULTURE [MREF] Stat Lab 09/20/21 16:26 Received RED BLOOD CELLS LP [BBK] Stat Lab 09/20/21 12:35 Results TYPE AND SCREEN [BBK] Stat Lab 09/20/21 12:35 Results Sodium Chloride 0.9% [Normal Saline] 1,000 ml Med 09/20/21 16:20 Active IV NOW Sodium Chloride 0.9% [Saline Flush] Med 09/20/21 12:26 Active 10 ml FLUSH ASDIRECTED PRN Sodium Chloride 0.9% [Saline Flush] Med 09/20/21 12:56 Active 10 ml FLUSH ONETIME PRN Blood Culture x2 Reflex Set [OM.PC] Stat Oth 09/20/21 15:50 Ordered Peripheral IV Insertion Adult [OM.PC] Stat Oth 09/20/21 12:26 Ordered Transfuse RBC [Transfuse Red Blood Cells] [COMM] Oth 09/20/21 15:55 Ordered Routine Medication Orders Sodium Chloride (Normal Saline) 1,000 mls @ 100 mls/hr IV NOW STA Stop: 09/21/21 02:19 Last Admin: 09/20/21 17:18 Dose: 100 mls/hr Documented by: MARGARITO Sodium Chloride (Sodium Chloride 0.9% 10 Ml Syringe) 10 ml FLUSH ASDIRECTED PRN PRN Reason: Keep Vein Open Last Admin: 09/20/21 13:41 Dose: 10 ml Documented by: MARGARITO Sodium Chloride (Sodium Chloride 0.9% 10 Ml Syringe) 10 ml FLUSH ONETIME PRN PRN Reason: IV FLUSH Last Admin: 09/20/21 14:14 Dose: 10 ml Documented by: GRETTA Assessment/Plan Comment:: 56 y/o man with a GI bleed and transient intussusception - transfuse PRBC as needed - monitor for ongoing blood loss - NPO until repeat HG is stable will plan for continued workup and GI follow up as outpatient. Patricia Ellis MD General surgery
--- NOTE | 2021-09-20 19:14 | CT ---
CT abdomen and pelvis Technique: Multiple axial sections were obtained from above the dome of the diaphragm inferiorly through the pubic symphysis. Intravenous and oral contrast was not given at this time. Contrast was utilized on CT study performed earlier on the same date (2:07 PM). Comparison: CT abdomen and pelvis performed earlier on the same day (2:07 PM) and CT abdomen and pelvis performed on 04/23/21. Findings: Visualized lung bases show nothing acute. Nodular appearance of the liver is seen compatible with stable cirrhotic change. Spleen is enlarged. Gallbladder contains no calcified gallstones. Pancreas shows no discrete abnormality. Kidneys show symmetric contrast enhancement as well as contrast excretion into nondilated ureters. Contrast is noted within the bladder as well as within a small bladder diverticulum. Right and left adrenal glands show no nodule. Abdominal aorta shows atherosclerotic calcification which continues into the iliac vessels. No aneurysmal dilatation is seen. No retroperitoneal adenopathy or mesenteric abnormalities are seen. No pelvic mass or adenopathy is seen. Small fat-containing partial inguinal hernia is noted. No bowel dilatation is seen. Previous small bowel intussusception is reduced on current study. Small bowel within the left upper abdomen shows some residual wall thickening. Bone window settings were reviewed which show slight degenerative change scattered within the spine as well as sacroiliac joints. Impression: 1. Previous intussusception is no longer seen. Mild residual small bowel wall thickening is seen within the left upper abdomen. 2. Other chronic findings as described on previous CT study are stable in appearance. Diagnostic code #3
[2021-09-21] MEDS ORDERED: Pantoprazole 40 MG Vial IVPUSH ONE (01:30)
== END 2021-09-21 08:10 | disposition home or self-care (01) ==
LOC: JD.ED 12:00
DX: K92.2 Gastrointestinal hemorrhage, unspecified (principal); D64.9 Anemia, unspecified; Z20.822 Contact with and (suspected) exposure to COVID-19
CPT/HCPCS: 36415; 36430; 71260; 74176; 74177; 80053; 83605; 84484; 85014; 85018; 85025; 85610; 85730; 86850; 86900; 86901; 86922; 87040; 87635; 93005; 96365; 96375; 96376; 99285; C9113; J2405; J2543; J7030; P9016; Q9963; Q9967; U0002